=== PATIENT | male | born 1965 | race Two or more races ===

== ENCOUNTER → 2022-05-25 | Outpatient (CLI) | payer MEDICARE, MEDICAID ==
[~2022-05-25] MED LIST: BACL20TA PO; CINA30 PO; CLOP75TA33 PO; DIPH1TAB PO; FLUD0.1T PO; INSU100I19 SQ; KEPP500 PO; LACT1CAP68 PO; MIDO10TA PO; NEPVIT PO; PRAV20TA57 PO; SEVE800T8 PO; SITA50TA3 PO; TRIC54 PO
[2022-05-25 10:55] LABS: BG BASE EXCESS -1.3 mmol/L (-2.0-2.0); BG CARBOXYHEMOGLOBIN 0.9 % (0.5-1.5); BG DEOXYHEMOGLOBIN 2.5 % (0.0-5.0); BG METHEMOGLOBIN 0.1 % (0.0-1.5); BG OXYGEN SATURATION 97.5 % (92.0-98.5); BG OXYHEMOGLOBIN 96.5 % (94.0-97.0); BG PCO2 37.6 mmHg (35.0-45.0); BG PH 7.405 (7.350-7.450); BG PO2 98.3 mmHg (75.0-100.0); BG SAMPLE SITE LEFT RADIAL; BG TOTAL HEMOGLOBIN 13.2 g/dL (12.0-18.0); BG VENT MODE ROOM AIR
== END | disposition home or self-care (01) ==
LOC: PF 09:56
PROVIDERS: ATTEND Internal Medicine Pulmonary Disease
DX: J44.9 Chronic obstructive pulmonary disease, unspecified (principal); J45.909 Unspecified asthma, uncomplicated
CPT/HCPCS: 36600; 82375; 82805

== ENCOUNTER 2022-08-15 10:22 | Inpatient (IN) | payer MEDICARE, MEDICAID ==
[~2022-08-15] VITALS: Ht 167.6 cm; Wt 57.2 kg
[2022-08-15] MEDS ORDERED: LEVETIRACETAM 500MG PREMIX 100 ML IV ONE (12:15)
[2022-08-15] MEDS ORDERED: CLONIDINE 0.2MG TABLET PO ONE (13:00)
[2022-08-15 13:17] LABS: HEMATOCRIT. 32.5 % (42.0-52.0); HEMOGLOBIN. 10.7 g/dL (14.0-18.0); MEAN CORPUSCULAR HEMOGLOBIN 28.1 pg (28.0-32.0); MEAN CORPUSCULAR VOLUME 85.4 fL (80.0-94.0); MEAN PLATELET VOLUME 9.8 fl (7.4-10.4); PLATELET 96 x1000/uL (130-400); RED BLOOD CELL COUNT 3.81 mill/uL (4.7-6.1); RED CELL DISTRIBUTION WIDTH 15.5 % (11.6-14.6)
[2022-08-15 13:27] LABS: CHLORIDE 94 mEq/L (98-107)
[2022-08-15 13:44] LABS: PLATELET ESTIMATE DECREASED
[2022-08-15] MEDS: ALBUTEROL (0.083%) 2.5MG/3ML NEB HHN ONE (15:15)
[2022-08-15] MEDS ORDERED: INSULIN REGULAR (HUMULIN R) 300UNITS/3ML VIAL IV ONE (15:15)
[2022-08-15] MEDS ORDERED: CALCIUM GLUCONATE 100MG/ML 10ML VIAL IV ONE (15:15)
[2022-08-15] MEDS ORDERED: ASPIRIN 325MG EC TABLET PO ONE (15:15)
[2022-08-15] MEDS: SODIUM BICARBONATE 8.4% 1 MEQ/ML 50ML SYR IV ONE ×2 (15:34→16:20)
[2022-08-15] MEDS: SODIUM POLYSTYRENE SULFONATE 15 G/60 ML BOT PO ONE ×2 (15:34→16:20)
[2022-08-15] MEDS: DEXTROSE 50% WATER 50ML SYRINGE IV ONE ×2 (15:35→16:21)
[2022-08-15] MEDS ORDERED: MAGNESIUM/ALUMINUM HYDROXIDE/SIMETHICONE 30ML UDC PO PRN (18:30)
[2022-08-15] MEDS ORDERED: CLONIDINE 0.1MG TABLET PO PRN (18:30)
[2022-08-15] MEDS ORDERED: DOCUSATE SODIUM 100MG CAPSULE PO PRN (18:30)
[2022-08-15] MEDS ORDERED: ACETAMINOPHEN 325MG TABLET PO PRN (18:30)
[2022-08-15] MEDS ORDERED: ONDANSETRON HCL 4MG/2ML INJ IV PRN (18:30)
[2022-08-15] MEDS ORDERED: HYDROCODONE/ACETAMINOPHEN 5/325MG TABLET PO PRN (18:30)
[2022-08-15] MEDS ORDERED: GUAIFENESIN 200MG/10ML SUGAR FREE UDC PO PRN (18:30)
[2022-08-15] MEDS ORDERED: NALOXONE HCL 0.4MG/ML VIAL IV PRN (18:45)
[2022-08-15 18:49] LABS: CREATINE KINASE 53 IU/L (39-308)
[2022-08-15] MEDS: DEXTROSE 50% WATER 50ML SYRINGE IV PRN (19:54)
[2022-08-15] MEDS: INSULIN LISPRO 100 UNITS/ML SUBCUT SCH ×2 (19:55→21:00)
[2022-08-15 20:42] LABS: TOTAL IRON BINDING CAPACITY 191 ug/dL (250-450)
[2022-08-15] MEDS ORDERED: MEDICATION NOT ON FORMULARY EA (Pravastatin Sodium 1 TAB) PO SCH (21:00)
[2022-08-15] MEDS: BLOOD SUGAR DIAGNOSTIC STRIP TEST SCH (21:05)
[2022-08-15 21:21] LABS: FERRITIN 547 ng/mL (22-322); VITAMIN B12 SERUM 1423 pg/mL (211-911)
[2022-08-15] MEDS: ATORVASTATIN CALCIUM 10MG TABLET PO SCH (21:26)
[2022-08-15] MEDS: LEVETIRACETAM 500MG TABLET PO SCH (21:26)
[2022-08-15 22:00] VITALS: BP 156/52
[2022-08-15] MEDS ORDERED: BACLOFEN 20MG TABLET PO SCH (22:00)
[2022-08-16] VITALS (7 sets, daily range): BP systolic 132–159; BP diastolic 50–105
[2022-08-16] MEDS: FENOFIBRATE NANOCRYSTALLIZED 48MG TABLET PO SCH ×2 (00:01→21:37)
[2022-08-16] MEDS: BACLOFEN 10MG TABLET PO SCH ×4 (07:02→21:29)
[2022-08-16] MEDS: BLOOD SUGAR DIAGNOSTIC STRIP TEST SCH ×4 (07:11→21:42)
[2022-08-16 07:12] LABS: HEMATOCRIT. 33.9 % (42.0-52.0); HEMOGLOBIN. 11.3 g/dL (14.0-18.0); MEAN CORPUSCULAR HEMOGLOBIN 28.3 pg (28.0-32.0); MEAN CORPUSCULAR VOLUME 85.1 fL (80.0-94.0); MEAN PLATELET VOLUME 10.2 fl (7.4-10.4); PLATELET 96 x1000/uL (130-400); RED BLOOD CELL COUNT 3.99 mill/uL (4.7-6.1); RED CELL DISTRIBUTION WIDTH 15.7 % (11.6-14.6)
[2022-08-16 07:17] LABS: CHLORIDE 94 mEq/L (98-107); HDL CHOLESTEROL 96 mg/dL (40-59); LDL CHOLESTEROL 35 mg/dL (5-100)
[2022-08-16] MEDS: INSULIN LISPRO 100 UNITS/ML SUBCUT SCH ×4 (07:50→21:00)
[2022-08-16] MEDS ORDERED: ENOXAPARIN 30MG/0.3ML SYR SUBCUT SCH (09:00)
[2022-08-16] MEDS: FOLIC ACID/VITAMIN B COMP W-C TABLET PO SCH (09:26)
[2022-08-16] MEDS: LEVETIRACETAM 500MG TABLET PO SCH ×2 (09:27→21:29)
[2022-08-16] MEDS: SEVELAMER CARBONATE 800 MG TABLET PO SCH ×3 (09:27→17:50)
[2022-08-16] MEDS: CINACALCET HCL 60MG TABLET PO SCH (09:27)
[2022-08-16] MEDS: FLUDROCORTISONE ACETATE 0.1MG TABLET PO SCH ×3 (09:27→21:29)
[2022-08-16] MEDS: CLOPIDOGREL 75MG TABLET PO SCH (09:27)
[2022-08-16] MEDS: ENOXAPARIN 30MG/0.3ML SYR SUBCUT SCH (09:29)
[2022-08-16] MEDS ORDERED: LORAZEPAM 2MG/ML CPJ IV PRN ×2 (13:30→18:15)
[2022-08-16 13:53] LABS: PLATELET ESTIMATE DECREASED
[2022-08-16 14:15] LABS: CREATINE KINASE 66 IU/L (39-308)
[2022-08-16 16:02] LABS: HEPATITIS B SURFACE ANTIGEN NEGATIVE
[2022-08-16] MEDS: ATORVASTATIN CALCIUM 10MG TABLET PO SCH (21:38)
[2022-08-17] VITALS (7 sets, daily range): BP systolic 98–194; BP diastolic 54–90
[2022-08-17] MEDS: BACLOFEN 10MG TABLET PO SCH ×3 (05:45→22:00)
[2022-08-17] MEDS: BLOOD SUGAR DIAGNOSTIC STRIP TEST SCH ×4 (06:29→21:17)
[2022-08-17] MEDS: CINACALCET HCL 60MG TABLET PO SCH ×2 (07:50→09:46)
[2022-08-17] MEDS: SEVELAMER CARBONATE 800 MG TABLET PO SCH ×4 (07:50→17:50)
[2022-08-17] MEDS: CLOPIDOGREL 75MG TABLET PO SCH ×2 (09:00→09:46)
[2022-08-17] MEDS: FLUDROCORTISONE ACETATE 0.1MG TABLET PO SCH ×3 (09:00→21:00)
[2022-08-17] MEDS: ENOXAPARIN 30MG/0.3ML SYR SUBCUT SCH (09:00)
[2022-08-17] MEDS: LEVETIRACETAM 500MG TABLET PO SCH ×3 (09:00→21:00)
[2022-08-17] MEDS: FOLIC ACID/VITAMIN B COMP W-C TABLET PO SCH ×2 (09:00→09:46)
[2022-08-17] MEDS: INSULIN LISPRO 100 UNITS/ML SUBCUT SCH ×4 (09:46→21:00)
[2022-08-17] MEDS ORDERED: LORAZEPAM 2MG/ML CPJ IV PRN (10:00)
[2022-08-17 12:37] LABS: HEMATOCRIT. 31.4 % (42.0-52.0); HEMOGLOBIN. 10.3 g/dL (14.0-18.0); MEAN CORPUSCULAR VOLUME 84.8 fL (80.0-94.0); MEAN PLATELET VOLUME 10.4 fl (7.4-10.4); PLATELET 86 x1000/uL (130-400); RED CELL DISTRIBUTION WIDTH 15.9 % (11.6-14.6)
[2022-08-17 13:09] LABS: CHLORIDE 97 mEq/L (98-107)
[2022-08-17] MEDS ORDERED: FLUMAZENIL 0.1 MG/ML 5ML VIAL IV NR (13:15)
[2022-08-17] MEDS: AMLODIPINE 5MG TABLET PO SCH ×2 (13:15→21:00)
[2022-08-17] MEDS ORDERED: DILTIAZEM HCL 60MG TABLET PO SCH (14:00)
[2022-08-17 15:23] LABS: T4 FREE 1.2 ng/dL (0.76-1.46)
[2022-08-17 16:06] LABS: PLATELET ESTIMATE DECREASED
[2022-08-17] MEDS: DEXTROSE 50% WATER 50ML SYRINGE IV PRN (16:40)
[2022-08-17] MEDS: ATORVASTATIN CALCIUM 10MG TABLET PO SCH (21:00)
[2022-08-17] MEDS: FENOFIBRATE NANOCRYSTALLIZED 48MG TABLET PO SCH (21:00)
[2022-08-18 04:00] VITALS: BP 157/50
[2022-08-18] MEDS: BACLOFEN 10MG TABLET PO SCH ×3 (06:00→21:05)
[2022-08-18] MEDS: BLOOD SUGAR DIAGNOSTIC STRIP TEST SCH ×4 (06:45→20:24)
[2022-08-18 06:57] LABS: HEMATOCRIT. 35.4 % (42.0-52.0); HEMOGLOBIN. 11.6 g/dL (14.0-18.0); MEAN CORPUSCULAR HEMOGLOBIN 28.1 pg (28.0-32.0); MEAN CORPUSCULAR VOLUME 85.3 fL (80.0-94.0); MEAN PLATELET VOLUME 9.9 fl (7.4-10.4); PLATELET 86 x1000/uL (130-400); RED BLOOD CELL COUNT 4.14 mill/uL (4.7-6.1); RED CELL DISTRIBUTION WIDTH 15.7 % (11.6-14.6)
[2022-08-18 07:13] LABS: CHLORIDE 97 mEq/L (98-107)
[2022-08-18] MEDS: INSULIN LISPRO 100 UNITS/ML SUBCUT SCH ×4 (07:50→20:28)
[2022-08-18] MEDS: SEVELAMER CARBONATE 800 MG TABLET PO SCH ×3 (07:50→17:50)
[2022-08-18 08:00] VITALS: BP 146/88
[2022-08-18 08:17] LABS: PLATELET ESTIMATE DECREASED
[2022-08-18 11:36] LABS: PROTHROMBIN TIME 11.2 sec (9.6-11.0)
[2022-08-18 12:00] VITALS: BP 139/56
[2022-08-18] MEDS: LEVOTHYROXINE SODIUM 50MCG TABLET PO SCH (14:23)
[2022-08-18] MEDS: AMLODIPINE 5MG TABLET PO SCH ×2 (14:23→21:05)
[2022-08-18] MEDS: CINACALCET HCL 60MG TABLET PO SCH (14:23)
[2022-08-18] MEDS: FOLIC ACID/VITAMIN B COMP W-C TABLET PO SCH (14:23)
[2022-08-18] MEDS: FLUDROCORTISONE ACETATE 0.1MG TABLET PO SCH ×2 (14:23→21:05)
[2022-08-18] MEDS: CLOPIDOGREL 75MG TABLET PO SCH (14:23)
[2022-08-18] MEDS: LEVETIRACETAM 500MG TABLET PO SCH ×2 (14:24→21:05)
[2022-08-18 16:00] VITALS: BP 155/62
[2022-08-18 20:18] VITALS: BP 156/70
[2022-08-18] MEDS: FAMOTIDINE 20MG TABLET NG SCH (21:05)
[2022-08-18] MEDS: FENOFIBRATE NANOCRYSTALLIZED 48MG TABLET PO SCH (21:05)
[2022-08-18] MEDS: ATORVASTATIN CALCIUM 10MG TABLET PO SCH (21:06)
[2022-08-19 00:22] VITALS: BP 157/64
[2022-08-19 04:00] VITALS: BP 132/65
[2022-08-19] MEDS: BACLOFEN 10MG TABLET PO SCH ×3 (06:53→22:03)
[2022-08-19] MEDS: LEVOTHYROXINE SODIUM 50MCG TABLET PO SCH (06:53)
[2022-08-19] MEDS: BLOOD SUGAR DIAGNOSTIC STRIP TEST SCH ×4 (06:53→21:09)
[2022-08-19] MEDS: INSULIN LISPRO 100 UNITS/ML SUBCUT SCH ×4 (07:50→22:01)
[2022-08-19 08:00] VITALS: BP 105/49
[2022-08-19] MEDS: AMLODIPINE 5MG TABLET PO SCH ×2 (08:39→21:00)
[2022-08-19] MEDS: CLOPIDOGREL 75MG TABLET PO SCH (08:39)
[2022-08-19] MEDS: LEVETIRACETAM 500MG TABLET PO SCH ×2 (08:40→22:00)
[2022-08-19] MEDS: SEVELAMER CARBONATE 800 MG TABLET PO SCH ×3 (08:40→18:21)
[2022-08-19] MEDS: FOLIC ACID/VITAMIN B COMP W-C TABLET PO SCH (08:40)
[2022-08-19] MEDS: CINACALCET HCL 60MG TABLET PO SCH (08:40)
[2022-08-19] MEDS: FLUDROCORTISONE ACETATE 0.1MG TABLET PO SCH ×2 (08:40→21:59)
[2022-08-19 08:41] LABS: BASOPHILS % 0.8 % (0.0-2.0); HEMATOCRIT. 33.4 % (42.0-52.0); HEMOGLOBIN. 10.9 g/dL (14.0-18.0); MEAN CORPUSCULAR VOLUME 85.7 fL (80.0-94.0); MEAN PLATELET VOLUME 10.2 fl (7.4-10.4); MONOCYTES % 6.5 % (2.0-8.0); NEUTROPHILS % 83.7 % (40.0-76.0); PLATELET 83 x1000/uL (130-400); RED CELL DISTRIBUTION WIDTH 15.9 % (11.6-14.6)
[2022-08-19 09:05] LABS: CHLORIDE 96 mEq/L (98-107)
[2022-08-19] MEDS: ACETAMINOPHEN 325MG TABLET PO PRN ×2 (09:44→14:28)
[2022-08-19 12:00] VITALS: BP 93/48
[2022-08-19 16:00] VITALS: BP 115/50
[2022-08-19] MEDS ORDERED: PIPERACILLIN/TAZOBACTAM 3.375 G in DEXTROSE 5% WATER 50 ML IV SCH (18:00)
[2022-08-19] MEDS ORDERED: VANCOMYCIN 1.25GM PMX (XELLIA) 250 ML IV NR (18:00)
[2022-08-19 20:00] VITALS: BP 111/54
[2022-08-19 21:03] LABS: HEMATOCRIT 30.3 % (42.0-52.0); HEMOGLOBIN 9.9 g/dL (14.0-18.0); MEAN CORPUSCULAR HEMOGLOBIN 28.1 pg (28.0-32.0); MEAN CORPUSCULAR VOLUME 86.2 fL (80.0-94.0); PLATELET 68 x1000/uL (130-400); RED BLOOD CELL COUNT 3.51 mill/uL (4.7-6.1); RED CELL DISTRIBUTION WIDTH 16.2 % (11.6-14.6)
[2022-08-19] MEDS: ATORVASTATIN CALCIUM 10MG TABLET PO SCH (21:36)
[2022-08-19] MEDS: FENOFIBRATE NANOCRYSTALLIZED 48MG TABLET PO SCH (21:59)
[2022-08-19] MEDS: FAMOTIDINE 20MG TABLET NG SCH (21:59)
[2022-08-19] MEDS ORDERED: PIPERACILLIN/TAZOBACTAM 3.375GM/50ML PREMIX IV SCH (22:00)
[2022-08-20] VITALS (54 sets, daily range): BP systolic 78–147; BP diastolic 43–93
[2022-08-20] MEDS: BLOOD SUGAR DIAGNOSTIC STRIP TEST SCH ×3 (06:32→20:40)
[2022-08-20] MEDS: BACLOFEN 10MG TABLET PO SCH ×3 (06:33→21:34)
[2022-08-20] MEDS: LEVOTHYROXINE SODIUM 50MCG TABLET PO SCH (06:33)
[2022-08-20] MEDS: PIPERACILLIN/TAZOBACTAM 3.375 G in DEXTROSE 5% WATER 50 ML IV SCH ×2 (08:31→21:34)
[2022-08-20] MEDS: SEVELAMER CARBONATE 800 MG TABLET PO SCH ×3 (08:31→17:00)
[2022-08-20] MEDS: FOLIC ACID/VITAMIN B COMP W-C TABLET PO SCH (08:31)
[2022-08-20] MEDS: AMLODIPINE 5MG TABLET PO SCH ×3 (08:32→21:00)
[2022-08-20] MEDS: FLUDROCORTISONE ACETATE 0.1MG TABLET PO SCH ×3 (08:32→21:33)
[2022-08-20] MEDS: CLOPIDOGREL 75MG TABLET PO SCH (08:32)
[2022-08-20] MEDS: LEVETIRACETAM 500MG TABLET PO SCH ×3 (08:32→21:33)
[2022-08-20] MEDS: INSULIN LISPRO 100 UNITS/ML SUBCUT SCH ×4 (08:55→21:00)
[2022-08-20 11:33] LABS: HEMATOCRIT 28.5 % (42.0-52.0); HEMOGLOBIN 9.3 g/dL (14.0-18.0); MEAN CORPUSCULAR HEMOGLOBIN 28.2 pg (28.0-32.0); PLATELET 71 x1000/uL (130-400); RED BLOOD CELL COUNT 3.31 mill/uL (4.7-6.1); RED CELL DISTRIBUTION WIDTH 16.1 % (11.6-14.6)
[2022-08-20 12:22] LABS: BG BASE EXCESS -3.5 mmol/L (-2.0-2.0); BG CARBOXYHEMOGLOBIN 0.6 % (0.5-1.5); BG DEOXYHEMOGLOBIN 1.2 % (0.0-5.0); BG FRACTION INSPIRED OXYGEN 100; BG METHEMOGLOBIN 0.3 % (0.0-1.5); BG OXYGEN SATURATION 98.8 % (92.0-98.5); BG OXYHEMOGLOBIN 97.9 % (94.0-97.0); BG PCO2 35.9 mmHg (35.0-45.0); BG PH 7.385 (7.350-7.450); BG PO2 355.2 mmHg (75.0-100.0); BG SAMPLE SITE RIGHT BRACHIAL; BG TOTAL HEMOGLOBIN 11.4 g/dL (12.0-18.0); BG VENT MODE VENT - AC
[2022-08-20] MEDS: PHENYLEPHRINE 100 MG in DEXT 5% WATER 240 ML IV PRN (12:41)
[2022-08-20] MEDS ORDERED: NOREPINEPHRINE 32 MG in DEXT 5% WATER 218 ML IV PRN (13:00)
[2022-08-20] MEDS: CINACALCET HCL 60MG TABLET PO SCH (13:04)
[2022-08-20 16:05] LABS: HEMATOCRIT. 28.8 % (42.0-52.0); HEMOGLOBIN. 9.5 g/dL (14.0-18.0); MEAN CORPUSCULAR HEMOGLOBIN 28.6 pg (28.0-32.0); MEAN CORPUSCULAR VOLUME 86.2 fL (80.0-94.0); MEAN PLATELET VOLUME 10.6 fl (7.4-10.4); PLATELET 82 x1000/uL (130-400); RED BLOOD CELL COUNT 3.34 mill/uL (4.7-6.1); RED CELL DISTRIBUTION WIDTH 16.6 % (11.6-14.6)
[2022-08-20 16:30] LABS: CHLORIDE 88 mEq/L (98-107)
[2022-08-20 17:04] LABS: PLATELET ESTIMATE DECREASED
[2022-08-20] MEDS: FAMOTIDINE 20MG TABLET NG SCH ×2 (20:39→21:33)
[2022-08-20] MEDS: FENOFIBRATE NANOCRYSTALLIZED 48MG TABLET PO SCH ×2 (20:40→21:33)
[2022-08-20] MEDS: ATORVASTATIN CALCIUM 10MG TABLET PO SCH ×2 (20:40→21:33)
[2022-08-21] VITALS (98 sets, daily range): BP systolic 92–181; BP diastolic 52–114
[2022-08-21 05:11] LABS: BASOPHILS % 0.5 % (0.0-2.0); EOSINOPHILS % 0.8 % (0.0-5.0); HEMATOCRIT. 29.5 % (42.0-52.0); HEMOGLOBIN. 9.9 g/dL (14.0-18.0); LYMPHOCYTES % 11.4 % (20.0-50.0); MEAN CORPUSCULAR HEMOGLOBIN 28.5 pg (28.0-32.0); MEAN CORPUSCULAR VOLUME 84.8 fL (80.0-94.0); MEAN PLATELET VOLUME 11.1 fl (7.4-10.4); MONOCYTES % 7.2 % (2.0-8.0); NEUTROPHILS % 80.1 % (40.0-76.0); PLATELET 77 x1000/uL (130-400); RED BLOOD CELL COUNT 3.48 mill/uL (4.7-6.1); RED CELL DISTRIBUTION WIDTH 16.7 % (11.6-14.6)
[2022-08-21] MEDS: BACLOFEN 10MG TABLET PO SCH ×3 (05:21→21:23)
[2022-08-21] MEDS: BLOOD SUGAR DIAGNOSTIC STRIP TEST SCH ×4 (05:21→21:39)
[2022-08-21 05:35] LABS: CHLORIDE 89 mEq/L (98-107)
[2022-08-21 05:48] LABS: PHOSPHORUS 3.6 mg/dL (2.5-4.9)
[2022-08-21] MEDS: INSULIN LISPRO 100 UNITS/ML SUBCUT SCH ×4 (06:03→21:41)
[2022-08-21] MEDS: LEVOTHYROXINE SODIUM 50MCG TABLET PO SCH (06:17)
[2022-08-21] MEDS: CINACALCET HCL 60MG TABLET PO SCH (07:53)
[2022-08-21] MEDS: SEVELAMER CARBONATE 800 MG TABLET PO SCH ×3 (07:53→16:04)
[2022-08-21] MEDS: LEVETIRACETAM 500MG TABLET PO SCH ×2 (08:03→21:21)
[2022-08-21] MEDS: CLOPIDOGREL 75MG TABLET PO SCH (08:03)
[2022-08-21] MEDS: FOLIC ACID/VITAMIN B COMP W-C TABLET PO SCH (08:03)
[2022-08-21] MEDS: FLUDROCORTISONE ACETATE 0.1MG TABLET PO SCH ×2 (08:03→21:21)
[2022-08-21] MEDS: AMLODIPINE 5MG TABLET PO SCH ×2 (08:10→21:22)
[2022-08-21] MEDS: PIPERACILLIN/TAZOBACTAM 3.375 G in DEXTROSE 5% WATER 50 ML IV SCH ×2 (08:10→21:24)
[2022-08-21 08:46] LABS: BG BASE EXCESS -2.5 mmol/L (-2.0-2.0); BG CARBOXYHEMOGLOBIN 0.7 % (0.5-1.5); BG DEOXYHEMOGLOBIN 2.5 % (0.0-5.0); BG FRACTION INSPIRED OXYGEN 30; BG HCO3 ACT 20.9 mmol/L (22.0-26.0); BG METHEMOGLOBIN 0.3 % (0.0-1.5); BG OXYGEN SATURATION 97.5 % (92.0-98.5); BG OXYHEMOGLOBIN 96.5 % (94.0-97.0); BG PCO2 30.4 mmHg (35.0-45.0); BG PH 7.456 (7.350-7.450); BG PO2 120.2 mmHg (75.0-100.0); BG SAMPLE SITE RIGHT RADIAL; BG TOTAL HEMOGLOBIN 8.2 g/dL (12.0-18.0); BG VENT MODE VENT - AC
[2022-08-21] MEDS: PHENYLEPHRINE 100 MG in DEXT 5% WATER 240 ML IV PRN (15:36)
[2022-08-21] MEDS ORDERED: VANCOMYCIN 500MG PREMIX 100 ML IV NR (21:00)
[2022-08-21] MEDS: FAMOTIDINE 20MG TABLET NG SCH (21:21)
[2022-08-21] MEDS: FENOFIBRATE NANOCRYSTALLIZED 48MG TABLET PO SCH (21:21)
[2022-08-21] MEDS: ATORVASTATIN CALCIUM 10MG TABLET PO SCH (21:24)
[2022-08-22] VITALS (53 sets, daily range): BP systolic 59–153; BP diastolic 35–113
[2022-08-22 05:24] LABS: HEMOGLOBIN 10.4 g/dL (14.0-18.0); MEAN CORPUSCULAR HEMOGLOBIN 28.2 pg (28.0-32.0); MEAN CORPUSCULAR VOLUME 84.2 fL (80.0-94.0); PLATELET 101 x1000/uL (130-400); RED BLOOD CELL COUNT 3.68 mill/uL (4.7-6.1); RED CELL DISTRIBUTION WIDTH 16.7 % (11.6-14.6)
[2022-08-22] MEDS: BACLOFEN 10MG TABLET PO SCH ×2 (05:44→13:07)
[2022-08-22] MEDS: CINACALCET HCL 60MG TABLET PO SCH (06:11)
[2022-08-22] MEDS: BLOOD SUGAR DIAGNOSTIC STRIP TEST SCH ×4 (06:11→21:00)
[2022-08-22] MEDS: SEVELAMER CARBONATE 800 MG TABLET PO SCH ×3 (06:11→17:00)
[2022-08-22] MEDS: LEVOTHYROXINE SODIUM 50MCG TABLET PO SCH (06:11)
[2022-08-22] MEDS: INSULIN LISPRO 100 UNITS/ML SUBCUT SCH ×4 (06:38→22:18)
[2022-08-22 07:47] LABS: BG BASE EXCESS 2.7 mmol/L (-2.0-2.0); BG CARBOXYHEMOGLOBIN 0.4 % (0.5-1.5); BG DEOXYHEMOGLOBIN 2.3 % (0.0-5.0); BG FRACTION INSPIRED OXYGEN 30; BG HCO3 ACT 24.8 mmol/L (22.0-26.0); BG METHEMOGLOBIN 0.3 % (0.0-1.5); BG OXYGEN SATURATION 97.7 % (92.0-98.5); BG PCO2 29.7 mmHg (35.0-45.0); BG PH 7.539 (7.350-7.450); BG PO2 121.1 mmHg (75.0-100.0); BG SAMPLE SITE RIGHT BRACHIAL; BG TOTAL HEMOGLOBIN 10.4 g/dL (12.0-18.0); BG VENT MODE VENT - AC
[2022-08-22 08:08] LABS: HBSAG SCREEN Negative (Negative)
[2022-08-22] MEDS: PIPERACILLIN/TAZOBACTAM 3.375 G in DEXTROSE 5% WATER 50 ML IV SCH (08:52)
[2022-08-22] MEDS: FOLIC ACID/VITAMIN B COMP W-C TABLET PO SCH (08:53)
[2022-08-22] MEDS: CLOPIDOGREL 75MG TABLET PO SCH (08:53)
[2022-08-22] MEDS: LEVETIRACETAM 500MG TABLET PO SCH ×2 (08:53→22:18)
[2022-08-22] MEDS: AMLODIPINE 5MG TABLET PO SCH ×2 (08:53→22:20)
[2022-08-22] MEDS: FLUDROCORTISONE ACETATE 0.1MG TABLET PO SCH ×2 (08:53→22:19)
[2022-08-22] MEDS: CEFEPIME 2,000 MG in DEXT 5% WATER 100 ML IV SCH (14:05)
[2022-08-22] MEDS: AZITHROMYCIN 500 MG in DEXT 5% WATER 250 ML IV SCH (14:06)
[2022-08-22] MEDS: ATORVASTATIN CALCIUM 10MG TABLET PO SCH (21:00)
[2022-08-22] MEDS: FENOFIBRATE NANOCRYSTALLIZED 48MG TABLET PO SCH (22:18)
[2022-08-22] MEDS: FAMOTIDINE 20MG TABLET NG SCH (22:19)
[2022-08-23] VITALS (72 sets, daily range): BP systolic 100–169; BP diastolic 44–119
[2022-08-23 04:26] LABS: HEMOGLOBIN. 10.5 g/dL (14.0-18.0); MEAN CORPUSCULAR HEMOGLOBIN 27.7 pg (28.0-32.0); MEAN CORPUSCULAR VOLUME 84.7 fL (80.0-94.0); PLATELET 94 x1000/uL (130-400); RED BLOOD CELL COUNT 3.78 mill/uL (4.7-6.1); RED CELL DISTRIBUTION WIDTH 16.8 % (11.6-14.6)
[2022-08-23] MEDS: BLOOD SUGAR DIAGNOSTIC STRIP TEST SCH ×4 (06:18→20:56)
[2022-08-23] MEDS: SEVELAMER CARBONATE 800 MG TABLET PO SCH ×3 (06:21→17:10)
[2022-08-23] MEDS: CINACALCET HCL 60MG TABLET PO SCH (06:21)
[2022-08-23] MEDS: LEVOTHYROXINE SODIUM 50MCG TABLET PO SCH (06:21)
[2022-08-23] MEDS: INSULIN LISPRO 100 UNITS/ML SUBCUT SCH ×4 (06:22→20:56)
[2022-08-23 08:24] LABS: BG BASE EXCESS 0.1 mmol/L (-2.0-2.0); BG CARBOXYHEMOGLOBIN 0.3 % (0.5-1.5); BG FRACTION INSPIRED OXYGEN 30; BG HCO3 ACT 23.9 mmol/L (22.0-26.0); BG METHEMOGLOBIN 0.3 % (0.0-1.5); BG OXYHEMOGLOBIN 97.4 % (94.0-97.0); BG PCO2 35.8 mmHg (35.0-45.0); BG PH 7.443 (7.350-7.450); BG PO2 145.3 mmHg (75.0-100.0); BG SAMPLE SITE RIGHT RADIAL; BG TOTAL HEMOGLOBIN 10.4 g/dL (12.0-18.0); BG VENT MODE VENT - AC
[2022-08-23] MEDS: LEVETIRACETAM 500MG TABLET PO SCH ×2 (08:29→20:40)
[2022-08-23] MEDS: AMLODIPINE 5MG TABLET PO SCH ×2 (08:29→20:40)
[2022-08-23] MEDS: CLOPIDOGREL 75MG TABLET PO SCH (08:29)
[2022-08-23] MEDS: FOLIC ACID/VITAMIN B COMP W-C TABLET PO SCH (08:29)
[2022-08-23] MEDS: FLUDROCORTISONE ACETATE 0.1MG TABLET PO SCH ×2 (08:29→20:40)
[2022-08-23] MEDS: PHENYLEPHRINE 100 MG in DEXT 5% WATER 240 ML IV PRN (08:30)
[2022-08-23] MEDS: ENOXAPARIN 30MG/0.3ML SYR SUBCUT SCH (09:00)
[2022-08-23 12:08] LABS: PLATELET ESTIMATE DECREASED
[2022-08-23] MEDS: AZITHROMYCIN 500 MG in DEXT 5% WATER 250 ML IV SCH (14:01)
[2022-08-23] MEDS: CEFEPIME 2,000 MG in DEXT 5% WATER 100 ML IV SCH (14:02)
[2022-08-23] MEDS: ATORVASTATIN CALCIUM 10MG TABLET PO SCH (20:40)
[2022-08-23] MEDS: FAMOTIDINE 20MG TABLET NG SCH (20:40)
[2022-08-23] MEDS: FENOFIBRATE NANOCRYSTALLIZED 48MG TABLET PO SCH (20:40)
[2022-08-24] VITALS (52 sets, daily range): BP systolic 96–167; BP diastolic 42–104
[2022-08-24 05:54] LABS: HEMATOCRIT 31.4 % (42.0-52.0); HEMOGLOBIN 10.5 g/dL (14.0-18.0); MEAN CORPUSCULAR HEMOGLOBIN 28.2 pg (28.0-32.0); PLATELET 90 x1000/uL (130-400); RED BLOOD CELL COUNT 3.74 mill/uL (4.7-6.1); RED CELL DISTRIBUTION WIDTH 16.4 % (11.6-14.6)
[2022-08-24] MEDS: LEVOTHYROXINE SODIUM 50MCG TABLET PO SCH (06:23)
[2022-08-24] MEDS: BLOOD SUGAR DIAGNOSTIC STRIP TEST SCH ×4 (06:30→21:58)
[2022-08-24] MEDS: INSULIN LISPRO 100 UNITS/ML SUBCUT SCH ×4 (06:38→21:00)
[2022-08-24] MEDS: SEVELAMER CARBONATE 800 MG TABLET PO SCH ×3 (06:46→18:30)
[2022-08-24] MEDS: CINACALCET HCL 60MG TABLET PO SCH (06:47)
[2022-08-24] MEDS: FLUDROCORTISONE ACETATE 0.1MG TABLET PO SCH ×2 (09:00→23:10)
[2022-08-24 09:02] LABS: BG BASE EXCESS 0.5 mmol/L (-2.0-2.0); BG CARBOXYHEMOGLOBIN 0.5 % (0.5-1.5); BG DEOXYHEMOGLOBIN 2.4 % (0.0-5.0); BG FRACTION INSPIRED OXYGEN 30; BG HCO3 ACT 23.3 mmol/L (22.0-26.0); BG METHEMOGLOBIN 0.3 % (0.0-1.5); BG OXYGEN SATURATION 97.6 % (92.0-98.5); BG OXYHEMOGLOBIN 96.8 % (94.0-97.0); BG PH 7.494 (7.350-7.450); BG PO2 117.6 mmHg (75.0-100.0); BG SAMPLE SITE LEFT RADIAL; BG TOTAL HEMOGLOBIN 10.4 g/dL (12.0-18.0); BG TOTAL RESPIRATORY RATE 15 b/min; BG VENT MODE VENT - AC
[2022-08-24] MEDS: LEVETIRACETAM 500MG TABLET PO SCH ×2 (09:53→21:59)
[2022-08-24] MEDS: AMLODIPINE 5MG TABLET PO SCH ×2 (09:54→21:42)
[2022-08-24] MEDS: CLOPIDOGREL 75MG TABLET PO SCH (09:55)
[2022-08-24] MEDS: FOLIC ACID/VITAMIN B COMP W-C TABLET PO SCH (09:55)
[2022-08-24] MEDS ORDERED: VANCOMYCIN 500MG PREMIX 100 ML IV NR (12:00)
[2022-08-24] MEDS: CEFEPIME 2,000 MG in DEXT 5% WATER 100 ML IV SCH (14:00)
[2022-08-24] MEDS: AZITHROMYCIN 500 MG in DEXT 5% WATER 250 ML IV SCH (14:00)
[2022-08-24] MEDS ORDERED: ALTEPLASE 2MG/VIAL ITC NR (18:00)
[2022-08-24] MEDS: ATORVASTATIN CALCIUM 10MG TABLET PO SCH (21:42)
[2022-08-24] MEDS: FAMOTIDINE 20MG TABLET NG SCH (21:43)
[2022-08-24] MEDS: FENOFIBRATE NANOCRYSTALLIZED 48MG TABLET PO SCH (21:59)
[2022-08-25] VITALS (67 sets, daily range): BP systolic 91–178; BP diastolic 54–105
[2022-08-25 05:28] LABS: HEMATOCRIT. 30.4 % (42.0-52.0); HEMOGLOBIN. 10.1 g/dL (14.0-18.0); MEAN CORPUSCULAR VOLUME 84.2 fL (80.0-94.0); MEAN PLATELET VOLUME 10.2 fl (7.4-10.4); PLATELET 90 x1000/uL (130-400); RED BLOOD CELL COUNT 3.61 mill/uL (4.7-6.1); RED CELL DISTRIBUTION WIDTH 16.3 % (11.6-14.6)
[2022-08-25] MEDS: SEVELAMER CARBONATE 800 MG TABLET PO SCH ×3 (06:21→17:00)
[2022-08-25] MEDS: LEVOTHYROXINE SODIUM 50MCG TABLET PO SCH (06:21)
[2022-08-25] MEDS: CINACALCET HCL 60MG TABLET PO SCH (06:21)
[2022-08-25] MEDS: BLOOD SUGAR DIAGNOSTIC STRIP TEST SCH ×3 (06:22→17:00)
[2022-08-25] MEDS: INSULIN LISPRO 100 UNITS/ML SUBCUT SCH ×3 (06:54→17:00)
[2022-08-25 08:20] LABS: BG BASE EXCESS -0.4 mmol/L (-2.0-2.0); BG CARBOXYHEMOGLOBIN 0.3 % (0.5-1.5); BG DEOXYHEMOGLOBIN 2.1 % (0.0-5.0); BG FRACTION INSPIRED OXYGEN 30; BG HCO3 ACT 23.3 mmol/L (22.0-26.0); BG METHEMOGLOBIN 0.2 % (0.0-1.5); BG OXYGEN SATURATION 97.9 % (92.0-98.5); BG OXYHEMOGLOBIN 97.4 % (94.0-97.0); BG PCO2 34.8 mmHg (35.0-45.0); BG PH 7.444 (7.350-7.450); BG PO2 132.2 mmHg (75.0-100.0); BG SAMPLE SITE RIGHT BRACHIAL; BG TOTAL HEMOGLOBIN 10.1 g/dL (12.0-18.0); BG VENT MODE VENT - AC
[2022-08-25] MEDS: IPRATROPIUM/ALBUTEROL 0.5-3(2.5)MG/3ML NEB HHN PRN (08:29)
[2022-08-25] MEDS: FLUDROCORTISONE ACETATE 0.1MG TABLET PO SCH ×2 (09:00→21:34)
[2022-08-25] MEDS: FOLIC ACID/VITAMIN B COMP W-C TABLET PO SCH (09:00)
[2022-08-25] MEDS: AMLODIPINE 5MG TABLET PO SCH ×2 (09:00→21:35)
[2022-08-25 09:55] LABS: PLATELET ESTIMATE DECREASED
[2022-08-25] MEDS: LEVETIRACETAM 500MG TABLET PO SCH ×2 (10:01→21:34)
[2022-08-25] MEDS: CEFEPIME 2,000 MG in DEXT 5% WATER 100 ML IV SCH (13:16)
[2022-08-25] MEDS: AZITHROMYCIN 500 MG in DEXT 5% WATER 250 ML IV SCH (13:16)
[2022-08-25] MEDS: FAMOTIDINE 20MG TABLET NG SCH (21:34)
[2022-08-25] MEDS: ATORVASTATIN CALCIUM 10MG TABLET PO SCH (21:35)
[2022-08-25] MEDS: FENOFIBRATE NANOCRYSTALLIZED 48MG TABLET PO SCH (21:35)
[2022-08-26] VITALS (50 sets, daily range): BP systolic 90–153; BP diastolic 40–98
[2022-08-26] MEDS: BLOOD SUGAR DIAGNOSTIC STRIP TEST SCH ×4 (00:49→17:41)
[2022-08-26] MEDS: INSULIN LISPRO 100 UNITS/ML SUBCUT SCH ×4 (00:49→17:44)
[2022-08-26 05:38] LABS: HEMATOCRIT. 30.4 % (42.0-52.0); HEMOGLOBIN. 10.2 g/dL (14.0-18.0); MEAN CORPUSCULAR HEMOGLOBIN 28.8 pg (28.0-32.0); MEAN CORPUSCULAR VOLUME 85.7 fL (80.0-94.0); MEAN PLATELET VOLUME 9.9 fl (7.4-10.4); PLATELET 97 x1000/uL (130-400); RED BLOOD CELL COUNT 3.55 mill/uL (4.7-6.1); RED CELL DISTRIBUTION WIDTH 16.2 % (11.6-14.6)
[2022-08-26] MEDS: FLUDROCORTISONE ACETATE 0.1MG TABLET PO SCH ×2 (08:49→21:55)
[2022-08-26] MEDS: LEVOTHYROXINE SODIUM 50MCG TABLET PO SCH (08:50)
[2022-08-26] MEDS: AMLODIPINE 5MG TABLET PO SCH ×2 (08:50→21:55)
[2022-08-26] MEDS: SEVELAMER CARBONATE 800 MG TABLET PO SCH ×3 (08:50→16:39)
[2022-08-26] MEDS: CINACALCET HCL 60MG TABLET PO SCH (08:50)
[2022-08-26] MEDS: FOLIC ACID/VITAMIN B COMP W-C TABLET PO SCH (08:50)
[2022-08-26] MEDS: LEVETIRACETAM 500MG TABLET PO SCH ×2 (08:50→21:54)
[2022-08-26 10:04] LABS: PLATELET ESTIMATE DECREASED
[2022-08-26] MEDS ORDERED: CEFEPIME 1,000 MG in DEXTROSE 5% WATER 50 ML IV SCH (14:00)
[2022-08-26] MEDS: AZITHROMYCIN 500 MG in DEXT 5% WATER 250 ML IV SCH (14:07)
[2022-08-26 14:29] LABS: HEPATITIS B SURFACE ANTIGEN NEGATIVE
[2022-08-26] MEDS ORDERED: POTASSIUM BICARB/CIT ACID 25 MEQ TABLET.EFF NG NR (15:30)
[2022-08-26] MEDS ORDERED: POTASSIUM BICARB/CIT ACID 25 MEQ TABLET.EFF PO NR (15:30)
[2022-08-26] MEDS ORDERED: VANCOMYCIN 500MG PREMIX 100 ML IV NR (17:00)
[2022-08-26] MEDS: FENOFIBRATE NANOCRYSTALLIZED 48MG TABLET PO SCH (21:55)
[2022-08-26] MEDS: ATORVASTATIN CALCIUM 10MG TABLET PO SCH (21:55)
[2022-08-26] MEDS: FAMOTIDINE 20MG TABLET NG SCH (21:56)
[2022-08-27] VITALS (92 sets, daily range): BP systolic 60–123; BP diastolic 41–87
[2022-08-27 04:12] LABS: HEMATOCRIT. 29.2 % (42.0-52.0); HEMOGLOBIN. 9.8 g/dL (14.0-18.0); MEAN CORPUSCULAR HEMOGLOBIN 28.9 pg (28.0-32.0); MEAN CORPUSCULAR VOLUME 85.9 fL (80.0-94.0); MEAN PLATELET VOLUME 10.4 fl (7.4-10.4); PLATELET 112 x1000/uL (130-400)
[2022-08-27] MEDS: BLOOD SUGAR DIAGNOSTIC STRIP TEST SCH ×4 (06:00→17:32)
[2022-08-27] MEDS: LEVOTHYROXINE SODIUM 50MCG TABLET PO SCH (07:34)
[2022-08-27] MEDS: CINACALCET HCL 60MG TABLET PO SCH (07:34)
[2022-08-27] MEDS: SEVELAMER CARBONATE 800 MG TABLET PO SCH ×3 (07:34→17:32)
[2022-08-27] MEDS: INSULIN LISPRO 100 UNITS/ML SUBCUT SCH ×4 (07:35→17:32)
[2022-08-27] MEDS: FOLIC ACID/VITAMIN B COMP W-C TABLET PO SCH (08:31)
[2022-08-27] MEDS: FLUDROCORTISONE ACETATE 0.1MG TABLET PO SCH ×2 (08:32→21:31)
[2022-08-27] MEDS: LEVETIRACETAM 500MG TABLET PO SCH ×2 (08:32→21:31)
[2022-08-27] MEDS: AMLODIPINE 5MG TABLET PO SCH ×2 (08:32→21:32)
[2022-08-27 09:42] LABS: PLATELET ESTIMATE SLIGHTLY DECREASED
[2022-08-27] MEDS: CEFAZOLIN 1000MG PREMIX 50 ML IV SCH (14:01)
[2022-08-27] MEDS: FAMOTIDINE 20MG TABLET NG SCH (21:31)
[2022-08-27] MEDS: FENOFIBRATE NANOCRYSTALLIZED 48MG TABLET PO SCH (21:31)
[2022-08-27] MEDS: ATORVASTATIN CALCIUM 10MG TABLET PO SCH (21:31)
[2022-08-28] VITALS (103 sets, daily range): BP systolic 66–168; BP diastolic 41–91
[2022-08-28 04:47] LABS: HEMATOCRIT 28.6 % (42.0-52.0); HEMOGLOBIN 9.5 g/dL (14.0-18.0); MEAN CORPUSCULAR HEMOGLOBIN 28.6 pg (28.0-32.0); MEAN CORPUSCULAR VOLUME 86.2 fL (80.0-94.0); PLATELET 125 x1000/uL (130-400); RED BLOOD CELL COUNT 3.32 mill/uL (4.7-6.1); RED CELL DISTRIBUTION WIDTH 16.3 % (11.6-14.6)
[2022-08-28] MEDS: INSULIN LISPRO 100 UNITS/ML SUBCUT SCH ×5 (06:00→23:41)
[2022-08-28] MEDS: BLOOD SUGAR DIAGNOSTIC STRIP TEST SCH ×5 (06:27→23:21)
[2022-08-28] MEDS: LEVOTHYROXINE SODIUM 50MCG TABLET PO SCH (06:28)
[2022-08-28] MEDS: SEVELAMER CARBONATE 800 MG TABLET PO SCH ×3 (06:29→17:29)
[2022-08-28] MEDS: CINACALCET HCL 60MG TABLET PO SCH (06:29)
[2022-08-28] MEDS: FOLIC ACID/VITAMIN B COMP W-C TABLET PO SCH (08:08)
[2022-08-28] MEDS: FLUDROCORTISONE ACETATE 0.1MG TABLET PO SCH ×2 (08:08→20:21)
[2022-08-28] MEDS: LEVETIRACETAM 500MG TABLET PO SCH ×2 (08:08→20:20)
[2022-08-28] MEDS: AMLODIPINE 5MG TABLET PO SCH ×2 (08:09→20:21)
[2022-08-28] MEDS: CEFAZOLIN 1000MG PREMIX 50 ML IV SCH (17:29)
[2022-08-28] MEDS: ATORVASTATIN CALCIUM 10MG TABLET PO SCH (20:20)
[2022-08-28] MEDS: FAMOTIDINE 20MG TABLET NG SCH (20:20)
[2022-08-28] MEDS: FENOFIBRATE NANOCRYSTALLIZED 48MG TABLET PO SCH (20:21)
[2022-08-28 20:40] LABS: INR 1.1
[2022-08-29] VITALS (102 sets, daily range): BP systolic 76–227; BP diastolic 33–151
[2022-08-29 05:17] LABS: HEMATOCRIT 29.8 % (42.0-52.0); HEMOGLOBIN 9.8 g/dL (14.0-18.0); MEAN CORPUSCULAR HEMOGLOBIN 28.3 pg (28.0-32.0); MEAN CORPUSCULAR VOLUME 86.2 fL (80.0-94.0); PLATELET 134 x1000/uL (130-400); RED BLOOD CELL COUNT 3.45 mill/uL (4.7-6.1); RED CELL DISTRIBUTION WIDTH 15.9 % (11.6-14.6)
[2022-08-29] MEDS: BLOOD SUGAR DIAGNOSTIC STRIP TEST SCH ×3 (05:25→18:37)
[2022-08-29] MEDS: INSULIN LISPRO 100 UNITS/ML SUBCUT SCH ×3 (05:25→18:41)
[2022-08-29] MEDS: LEVOTHYROXINE SODIUM 50MCG TABLET PO SCH (05:26)
[2022-08-29] MEDS: SEVELAMER CARBONATE 800 MG TABLET PO SCH ×3 (06:38→18:37)
[2022-08-29] MEDS: CINACALCET HCL 60MG TABLET PO SCH (06:38)
[2022-08-29] MEDS: AMLODIPINE 5MG TABLET PO SCH ×2 (08:45→21:00)
[2022-08-29] MEDS: FLUDROCORTISONE ACETATE 0.1MG TABLET PO SCH ×2 (08:45→21:28)
[2022-08-29] MEDS: LEVETIRACETAM 250MG TABLET PO SCH ×2 (08:45→21:27)
[2022-08-29] MEDS: FOLIC ACID/VITAMIN B COMP W-C TABLET PO SCH (08:45)
[2022-08-29] MEDS ORDERED: KCL 20MEQ/100ML PREMIX 100 ML IV NR (11:00)
[2022-08-29] MEDS: CEFAZOLIN 1000MG PREMIX 50 ML IV SCH (14:07)
[2022-08-29 14:39] LABS: HEPATITIS B SURFACE ANTIGEN NEGATIVE
[2022-08-29] MEDS: FAMOTIDINE 20MG TABLET NG SCH (21:27)
[2022-08-29] MEDS: ATORVASTATIN CALCIUM 10MG TABLET PO SCH (21:27)
[2022-08-29] MEDS: FENOFIBRATE NANOCRYSTALLIZED 48MG TABLET PO SCH (21:28)
[2022-08-30] VITALS (92 sets, daily range): BP systolic 75–177; BP diastolic 38–105
[2022-08-30] MEDS: BLOOD SUGAR DIAGNOSTIC STRIP TEST SCH ×4 (02:46→17:47)
[2022-08-30] MEDS: INSULIN LISPRO 100 UNITS/ML SUBCUT SCH ×4 (02:46→17:47)
[2022-08-30 06:00] LABS: HEMOGLOBIN. 9.7 g/dL (14.0-18.0); MEAN CORPUSCULAR HEMOGLOBIN 28.9 pg (28.0-32.0); MEAN CORPUSCULAR VOLUME 86.6 fL (80.0-94.0); MEAN PLATELET VOLUME 10.2 fl (7.4-10.4); PLATELET 142 x1000/uL (130-400); RED BLOOD CELL COUNT 3.35 mill/uL (4.7-6.1); RED CELL DISTRIBUTION WIDTH 16.3 % (11.6-14.6)
[2022-08-30] MEDS: LEVOTHYROXINE SODIUM 50MCG TABLET PO SCH ×2 (06:30→08:45)
[2022-08-30] MEDS: SEVELAMER CARBONATE 800 MG TABLET PO SCH ×3 (07:00→17:47)
[2022-08-30] MEDS: CINACALCET HCL 60MG TABLET PO SCH (07:00)
[2022-08-30] MEDS: LEVETIRACETAM 250MG TABLET PO SCH ×2 (08:45→21:10)
[2022-08-30] MEDS: FOLIC ACID/VITAMIN B COMP W-C TABLET PO SCH (08:45)
[2022-08-30] MEDS: FLUDROCORTISONE ACETATE 0.1MG TABLET PO SCH ×2 (09:00→21:11)
[2022-08-30] MEDS: MIDODRINE HCL 5MG TABLET PO SCH ×3 (09:15→17:47)
[2022-08-30 09:21] LABS: PLATELET ESTIMATE NORMAL
[2022-08-30] MEDS ORDERED: KCL 20MEQ/100ML PREMIX 100 ML IV NR (10:00)
[2022-08-30] MEDS: CEFAZOLIN 1000MG PREMIX 50 ML IV SCH (14:00)
[2022-08-30] MEDS ORDERED: SUCCINYLCHOLINE CHLORIDE 200MG/10ML IV ONE (14:20)
[2022-08-30] MEDS ORDERED: PHENYLEPHRINE HCL 10 MG/ML 1ML (IV VIAL) IV ONE (14:21)
[2022-08-30] MEDS ORDERED: PROPOFOL 200MG/20ML VIAL IV ONE (14:21)
[2022-08-30] MEDS ORDERED: FENTANYL CITRATE/PF 50MCG/ML 2ML VIAL ONE (14:22)
[2022-08-30] MEDS ORDERED: ROCURONIUM BROMIDE 10MG/ML VIAL 5ML IV ONE (14:59)
[2022-08-30] MEDS: FENOFIBRATE NANOCRYSTALLIZED 48MG TABLET PO SCH (21:00)
[2022-08-30] MEDS: ATORVASTATIN CALCIUM 10MG TABLET PO SCH (21:10)
[2022-08-30] MEDS: FAMOTIDINE 20MG TABLET NG SCH (21:11)
[2022-08-31] VITALS (92 sets, daily range): BP systolic 68–198; BP diastolic 34–92
[2022-08-31] MEDS: INSULIN LISPRO 100 UNITS/ML SUBCUT SCH ×4 (00:36→18:01)
[2022-08-31] MEDS: BLOOD SUGAR DIAGNOSTIC STRIP TEST SCH ×4 (00:38→18:00)
[2022-08-31 05:18] LABS: HEMATOCRIT. 28.1 % (42.0-52.0); HEMOGLOBIN. 9.3 g/dL (14.0-18.0); MEAN CORPUSCULAR HEMOGLOBIN 28.7 pg (28.0-32.0); MEAN PLATELET VOLUME 10.7 fl (7.4-10.4); PLATELET 160 x1000/uL (130-400); RED BLOOD CELL COUNT 3.23 mill/uL (4.7-6.1); RED CELL DISTRIBUTION WIDTH 16.7 % (11.6-14.6)
[2022-08-31 05:21] LABS: PHOSPHORUS 6.3 mg/dL (2.5-4.9)
[2022-08-31] MEDS: SEVELAMER CARBONATE 800 MG TABLET PO SCH ×3 (06:32→17:59)
[2022-08-31] MEDS: LEVOTHYROXINE SODIUM 50MCG TABLET PO SCH (06:32)
[2022-08-31] MEDS: CINACALCET HCL 60MG TABLET PO SCH (06:33)
[2022-08-31 08:09] LABS: PLATELET ESTIMATE NORMAL
[2022-08-31] MEDS: LEVETIRACETAM 250MG TABLET PO SCH ×2 (08:29→21:04)
[2022-08-31] MEDS: MIDODRINE HCL 5MG TABLET PO SCH ×3 (08:30→18:00)
[2022-08-31] MEDS: FOLIC ACID/VITAMIN B COMP W-C TABLET PO SCH (08:30)
[2022-08-31] MEDS: FLUDROCORTISONE ACETATE 0.1MG TABLET PO SCH ×2 (08:30→21:05)
[2022-08-31] MEDS: PHENYLEPHRINE 100 MG in DEXT 5% WATER 240 ML IV PRN (11:08)
[2022-08-31] MEDS: ENOXAPARIN 60MG/0.6ML SYR SUBCUT SCH (13:00)
[2022-08-31] MEDS: CEFAZOLIN 1000MG PREMIX 50 ML IV SCH (16:13)
[2022-08-31] MEDS: FENOFIBRATE NANOCRYSTALLIZED 48MG TABLET PO SCH (21:03)
[2022-08-31] MEDS: ATORVASTATIN CALCIUM 10MG TABLET PO SCH (21:04)
[2022-08-31] MEDS: FAMOTIDINE 20MG TABLET NG SCH (21:04)
[2022-09-01] VITALS (69 sets, daily range): BP systolic 65–157; BP diastolic 29–97
[2022-09-01] MEDS: BLOOD SUGAR DIAGNOSTIC STRIP TEST SCH ×5 (00:01→23:58)
[2022-09-01 04:35] LABS: HEMATOCRIT. 28.5 % (42.0-52.0); HEMOGLOBIN. 9.6 g/dL (14.0-18.0); MEAN CORPUSCULAR HEMOGLOBIN 29.1 pg (28.0-32.0); MEAN CORPUSCULAR VOLUME 86.6 fL (80.0-94.0); MEAN PLATELET VOLUME 10.9 fl (7.4-10.4); PLATELET 177 x1000/uL (130-400); RED BLOOD CELL COUNT 3.29 mill/uL (4.7-6.1); RED CELL DISTRIBUTION WIDTH 16.5 % (11.6-14.6)
[2022-09-01] MEDS: INSULIN LISPRO 100 UNITS/ML SUBCUT SCH ×5 (06:00→23:58)
[2022-09-01] MEDS: LEVOTHYROXINE SODIUM 50MCG TABLET PO SCH (06:55)
[2022-09-01] MEDS: CINACALCET HCL 60MG TABLET PO SCH (06:55)
[2022-09-01] MEDS: SEVELAMER CARBONATE 800 MG TABLET PO SCH ×3 (06:55→17:03)
[2022-09-01 07:35] LABS: PLATELET ESTIMATE NORMAL
[2022-09-01] MEDS: LEVETIRACETAM 250MG TABLET PO SCH ×2 (08:36→20:28)
[2022-09-01] MEDS: FLUDROCORTISONE ACETATE 0.1MG TABLET PO SCH ×2 (08:36→20:28)
[2022-09-01] MEDS: MIDODRINE HCL 5MG TABLET PO SCH ×3 (08:36→16:44)
[2022-09-01] MEDS: FOLIC ACID/VITAMIN B COMP W-C TABLET PO SCH (08:36)
[2022-09-01] MEDS ORDERED: POTASSIUM CHLORIDE INJ 40 MEQ in DEXT 5% WATER 250 ML IV ONE (09:15)
[2022-09-01 09:35] LABS: BG BASE EXCESS 0.4 mmol/L (-2.0-2.0); BG CARBOXYHEMOGLOBIN 0.6 % (0.5-1.5); BG DEOXYHEMOGLOBIN 2.6 % (0.0-5.0); BG FRACTION INSPIRED OXYGEN 30; BG HCO3 ACT 24.3 mmol/L (22.0-26.0); BG METHEMOGLOBIN 0.3 % (0.0-1.5); BG OXYGEN SATURATION 97.4 % (92.0-98.5); BG OXYHEMOGLOBIN 96.5 % (94.0-97.0); BG PCO2 36.5 mmHg (35.0-45.0); BG PH 7.442 (7.350-7.450); BG PO2 103.5 mmHg (75.0-100.0); BG SAMPLE SITE RIGHT BRACHIAL; BG TOTAL HEMOGLOBIN 10.4 g/dL (12.0-18.0); BG VENT MODE VENT - AC
[2022-09-01] MEDS: KCL 20MEQ/100ML X 2 FOR TOTAL KCL 40MEQ/200ML IV SCH ×2 (10:51→12:35)
[2022-09-01] MEDS: ENOXAPARIN 60MG/0.6ML SYR SUBCUT SCH (12:36)
[2022-09-01] MEDS: CEFAZOLIN 1000MG PREMIX 50 ML IV SCH (14:06)
[2022-09-01] MEDS: FAMOTIDINE 20MG TABLET NG SCH (20:27)
[2022-09-01] MEDS: ATORVASTATIN CALCIUM 10MG TABLET PO SCH (20:28)
[2022-09-01] MEDS: FENOFIBRATE NANOCRYSTALLIZED 48MG TABLET PO SCH (20:28)
[2022-09-01 22:10] LABS: HEPATITIS B SURFACE ANTIGEN NEGATIVE
[2022-09-02] VITALS (25 sets, daily range): BP systolic 75–147; BP diastolic 43–100
[2022-09-02] MEDS: INSULIN LISPRO 100 UNITS/ML SUBCUT SCH ×4 (05:12→23:12)
[2022-09-02] MEDS: BLOOD SUGAR DIAGNOSTIC STRIP TEST SCH ×4 (05:12→23:05)
[2022-09-02] MEDS: LEVOTHYROXINE SODIUM 50MCG TABLET PO SCH (05:13)
[2022-09-02 06:54] LABS: HEMATOCRIT. 28.4 % (42.0-52.0); HEMOGLOBIN. 9.2 g/dL (14.0-18.0); MEAN CORPUSCULAR HEMOGLOBIN 28.7 pg (28.0-32.0); MEAN CORPUSCULAR VOLUME 88.4 fL (80.0-94.0); MEAN PLATELET VOLUME 11.6 fl (7.4-10.4); PLATELET 191 x1000/uL (130-400); RED BLOOD CELL COUNT 3.21 mill/uL (4.7-6.1); RED CELL DISTRIBUTION WIDTH 16.8 % (11.6-14.6)
[2022-09-02] MEDS: CINACALCET HCL 60MG TABLET PO SCH (08:25)
[2022-09-02] MEDS: LEVETIRACETAM 250MG TABLET PO SCH ×2 (08:25→20:27)
[2022-09-02] MEDS: SEVELAMER CARBONATE 800 MG TABLET PO SCH ×3 (08:25→17:53)
[2022-09-02] MEDS: MIDODRINE HCL 5MG TABLET PO SCH ×3 (08:25→17:00)
[2022-09-02] MEDS: FLUDROCORTISONE ACETATE 0.1MG TABLET PO SCH ×2 (08:25→20:21)
[2022-09-02] MEDS: FOLIC ACID/VITAMIN B COMP W-C TABLET PO SCH (08:25)
[2022-09-02 11:09] LABS: PLATELET ESTIMATE NORMAL
[2022-09-02] MEDS: ENOXAPARIN 60MG/0.6ML SYR SUBCUT SCH (12:25)
[2022-09-02] MEDS: CEFAZOLIN 1000MG PREMIX 50 ML IV SCH (14:17)
[2022-09-02] MEDS: FAMOTIDINE 20MG TABLET NG SCH (20:21)
[2022-09-02] MEDS: FENOFIBRATE NANOCRYSTALLIZED 48MG TABLET PO SCH (20:21)
[2022-09-02] MEDS: ATORVASTATIN CALCIUM 10MG TABLET PO SCH (20:21)
[2022-09-03] VITALS (11 sets, daily range): BP systolic 87–144; BP diastolic 41–71
[2022-09-03 05:10] LABS: CHLORIDE 104 mEq/L (98-107)
[2022-09-03] MEDS: INSULIN LISPRO 100 UNITS/ML SUBCUT SCH ×4 (05:28→23:52)
[2022-09-03] MEDS: BLOOD SUGAR DIAGNOSTIC STRIP TEST SCH ×4 (05:28→23:52)
[2022-09-03 05:37] LABS: INR 1.2; PROTHROMBIN TIME 12.3 sec (9.6-11.0)
[2022-09-03 06:25] LABS: HEMATOCRIT. 28.3 % (42.0-52.0); HEMOGLOBIN. 9.2 g/dL (14.0-18.0); MEAN CORPUSCULAR HEMOGLOBIN 28.6 pg (28.0-32.0); MEAN CORPUSCULAR VOLUME 87.6 fL (80.0-94.0); PLATELET 199 x1000/uL (130-400); RED BLOOD CELL COUNT 3.23 mill/uL (4.7-6.1)
[2022-09-03] MEDS: LEVOTHYROXINE SODIUM 50MCG TABLET PO SCH (07:30)
[2022-09-03] MEDS: CINACALCET HCL 60MG TABLET PO SCH (08:00)
[2022-09-03] MEDS: SEVELAMER CARBONATE 800 MG TABLET PO SCH ×3 (08:00→17:15)
[2022-09-03 08:55] LABS: PLATELET ESTIMATE NORMAL
[2022-09-03] MEDS: LEVETIRACETAM 250MG TABLET PO SCH ×2 (09:00→20:41)
[2022-09-03] MEDS: FOLIC ACID/VITAMIN B COMP W-C TABLET PO SCH (09:00)
[2022-09-03] MEDS: FLUDROCORTISONE ACETATE 0.1MG TABLET PO SCH ×2 (09:00→20:41)
[2022-09-03] MEDS: MIDODRINE HCL 5MG TABLET PO SCH ×3 (09:00→17:15)
[2022-09-03] MEDS ORDERED: ENOXAPARIN 60MG/0.6ML SYR SUBCUT SCH (13:00)
[2022-09-03] MEDS ORDERED: LIDOCAINE HCL 1% 10 MG/ML 10ML VIAL ONE (13:00)
[2022-09-03] MEDS: CEFAZOLIN 1000MG PREMIX 50 ML IV SCH (14:08)
[2022-09-03] MEDS ORDERED: ETOMIDATE 2MG/ML 10ML VIAL IV ONE (14:25)
[2022-09-03] MEDS ORDERED: MIDAZOLAM HCL 5 MG/5 ML VIAL ONE (14:25)
[2022-09-03] MEDS ORDERED: ROCURONIUM BROMIDE 10MG/ML VIAL 5ML IV ONE (14:26)
[2022-09-03] MEDS: DEXT 5%/0.45% NACL 1000ML 1,000 ML IV SCH (15:33)
[2022-09-03] MEDS ORDERED: KCL 10MEQ/50ML PREMIX 50 ML IV NR (20:00)
[2022-09-03] MEDS: FENOFIBRATE NANOCRYSTALLIZED 48MG TABLET PO SCH (20:41)
[2022-09-03] MEDS: FAMOTIDINE 20MG TABLET NG SCH (20:41)
[2022-09-03] MEDS: ATORVASTATIN CALCIUM 10MG TABLET PO SCH (20:42)
[2022-09-03] MEDS: DEXTROSE 50% WATER 50ML SYRINGE IV PRN (23:52)
[2022-09-04] VITALS (12 sets, daily range): BP systolic 102–141; BP diastolic 45–89
[2022-09-04] MEDS: INSULIN LISPRO 100 UNITS/ML SUBCUT SCH ×3 (05:31→18:48)
[2022-09-04] MEDS: BLOOD SUGAR DIAGNOSTIC STRIP TEST SCH ×4 (05:32→23:56)
[2022-09-04 07:11] LABS: HEMATOCRIT. 27.5 % (42.0-52.0); HEMOGLOBIN. 9.1 g/dL (14.0-18.0); MEAN CORPUSCULAR HEMOGLOBIN 28.6 pg (28.0-32.0); MEAN CORPUSCULAR VOLUME 86.7 fL (80.0-94.0); MEAN PLATELET VOLUME 10.6 fl (7.4-10.4); PLATELET 223 x1000/uL (130-400); RED BLOOD CELL COUNT 3.17 mill/uL (4.7-6.1); RED CELL DISTRIBUTION WIDTH 16.6 % (11.6-14.6)
[2022-09-04] MEDS: LEVOTHYROXINE SODIUM 50MCG TABLET PO SCH (09:01)
[2022-09-04] MEDS: FLUDROCORTISONE ACETATE 0.1MG TABLET PO SCH ×2 (09:01→22:24)
[2022-09-04] MEDS: MIDODRINE HCL 5MG TABLET PO SCH ×3 (09:01→18:19)
[2022-09-04] MEDS: SEVELAMER CARBONATE 800 MG TABLET PO SCH ×3 (09:01→18:19)
[2022-09-04] MEDS: FOLIC ACID/VITAMIN B COMP W-C TABLET PO SCH (09:01)
[2022-09-04] MEDS: CINACALCET HCL 60MG TABLET PO SCH (09:02)
[2022-09-04] MEDS: LEVETIRACETAM 250MG TABLET PO SCH ×2 (09:10→22:29)
[2022-09-04 10:18] LABS: PLATELET ESTIMATE NORMAL
[2022-09-04] MEDS: CEFAZOLIN 1000MG PREMIX 50 ML IV SCH (14:56)
[2022-09-04 17:36] LABS: HEPATITIS B SURFACE ANTIGEN NEGATIVE
[2022-09-04] MEDS: FENOFIBRATE NANOCRYSTALLIZED 48MG TABLET PO SCH (22:24)
[2022-09-04] MEDS: ATORVASTATIN CALCIUM 10MG TABLET PO SCH (22:24)
[2022-09-04] MEDS: FAMOTIDINE 20MG TABLET NG SCH (22:25)
[2022-09-05] VITALS (13 sets, daily range): BP systolic 102–156; BP diastolic 36–81
[2022-09-05] MEDS: INSULIN LISPRO 100 UNITS/ML SUBCUT SCH ×4 (00:03→17:42)
[2022-09-05 06:24] LABS: HEMATOCRIT. 24.5 % (42.0-52.0); MEAN CORPUSCULAR HEMOGLOBIN 28.3 pg (28.0-32.0); MEAN CORPUSCULAR VOLUME 87.3 fL (80.0-94.0); MEAN PLATELET VOLUME 9.9 fl (7.4-10.4); PLATELET 211 x1000/uL (130-400); RED BLOOD CELL COUNT 2.81 mill/uL (4.7-6.1)
[2022-09-05] MEDS: BLOOD SUGAR DIAGNOSTIC STRIP TEST SCH ×3 (06:42→17:42)
[2022-09-05] MEDS: SEVELAMER CARBONATE 800 MG TABLET PO SCH ×3 (08:00→17:57)
[2022-09-05] MEDS: MIDODRINE HCL 5MG TABLET PO SCH ×3 (08:00→17:57)
[2022-09-05] MEDS: LEVETIRACETAM 250MG TABLET PO SCH ×2 (09:00→21:28)
[2022-09-05] MEDS ORDERED: POTASSIUM CHLORIDE INJ 40 MEQ in DEXT 5% WATER 250 ML IV ONE (11:00)
[2022-09-05] MEDS: FLUDROCORTISONE ACETATE 0.1MG TABLET PO SCH ×2 (12:31→21:14)
[2022-09-05] MEDS: FOLIC ACID/VITAMIN B COMP W-C TABLET PO SCH (12:32)
[2022-09-05] MEDS: KCL 20MEQ/100ML X 2 FOR TOTAL KCL 40MEQ/200ML IV SCH ×2 (12:32→15:42)
[2022-09-05] MEDS: CINACALCET HCL 60MG TABLET PO SCH (12:32)
[2022-09-05] MEDS: LEVOTHYROXINE SODIUM 50MCG TABLET PO SCH (12:42)
[2022-09-05] MEDS: CEFAZOLIN 1000MG PREMIX 50 ML IV SCH (14:44)
[2022-09-05 15:47] LABS: PLATELET ESTIMATE NORMAL
[2022-09-05] MEDS: DEXT 5%/0.45% NACL 1000ML 1,000 ML IV SCH (17:56)
[2022-09-05] MEDS: METOCLOPRAMIDE HCL 10MG/2ML VIAL IV SCH (17:57)
[2022-09-05] MEDS: ACETAMINOPHEN 325MG TABLET PO PRN (21:14)
[2022-09-05] MEDS: ATORVASTATIN CALCIUM 10MG TABLET PO SCH (21:14)
[2022-09-05] MEDS: FAMOTIDINE 20MG TABLET NG SCH (21:14)
[2022-09-05] MEDS: FENOFIBRATE NANOCRYSTALLIZED 48MG TABLET PO SCH (21:28)
[2022-09-06] VITALS (12 sets, daily range): BP systolic 108–164; BP diastolic 55–117
[2022-09-06] MEDS: BLOOD SUGAR DIAGNOSTIC STRIP TEST SCH ×4 (00:34→17:46)
[2022-09-06] MEDS: METOCLOPRAMIDE HCL 10MG/2ML VIAL IV SCH ×4 (00:34→17:40)
[2022-09-06] MEDS: INSULIN LISPRO 100 UNITS/ML SUBCUT SCH ×4 (00:36→17:45)
[2022-09-06 07:07] LABS: HEMATOCRIT. 25.4 % (42.0-52.0); HEMOGLOBIN. 8.4 g/dL (14.0-18.0); MEAN CORPUSCULAR VOLUME 87.6 fL (80.0-94.0); MEAN PLATELET VOLUME 9.9 fl (7.4-10.4); PLATELET 227 x1000/uL (130-400); RED CELL DISTRIBUTION WIDTH 17.3 % (11.6-14.6)
[2022-09-06] MEDS: CINACALCET HCL 60MG TABLET PO SCH (08:00)
[2022-09-06] MEDS: FLUDROCORTISONE ACETATE 0.1MG TABLET PO SCH ×2 (09:48→22:16)
[2022-09-06] MEDS: FOLIC ACID/VITAMIN B COMP W-C TABLET PO SCH (09:48)
[2022-09-06] MEDS: MIDODRINE HCL 5MG TABLET PO SCH ×3 (09:49→17:40)
[2022-09-06] MEDS: SEVELAMER CARBONATE 800 MG TABLET PO SCH ×3 (09:49→17:40)
[2022-09-06] MEDS: LEVETIRACETAM 250MG TABLET PO SCH ×2 (09:56→22:16)
[2022-09-06] MEDS ORDERED: POTASSIUM CHLORIDE 20MEQ TABLET SR PO NR (10:00)
[2022-09-06] MEDS: LEVOTHYROXINE SODIUM 50MCG TABLET PO SCH (13:15)
[2022-09-06 13:26] LABS: PLATELET ESTIMATE NORMAL
[2022-09-06] MEDS: CEFAZOLIN 1000MG PREMIX 50 ML IV SCH (14:00)
[2022-09-06] MEDS: FENOFIBRATE NANOCRYSTALLIZED 48MG TABLET PO SCH (22:16)
[2022-09-06] MEDS: FAMOTIDINE 20MG TABLET NG SCH (22:17)
[2022-09-06] MEDS: ATORVASTATIN CALCIUM 10MG TABLET PO SCH (22:17)
[2022-09-07] VITALS (15 sets, daily range): BP systolic 85–144; BP diastolic 33–80
[2022-09-07] MEDS: BLOOD SUGAR DIAGNOSTIC STRIP TEST SCH ×4 (00:31→18:06)
[2022-09-07] MEDS: INSULIN LISPRO 100 UNITS/ML SUBCUT SCH ×4 (00:35→18:00)
[2022-09-07] MEDS: METOCLOPRAMIDE HCL 10MG/2ML VIAL IV SCH ×4 (05:28→18:13)
[2022-09-07] MEDS: SEVELAMER CARBONATE 800 MG TABLET PO SCH ×3 (08:00→18:13)
[2022-09-07 08:09] LABS: HEMATOCRIT. 27.3 % (42.0-52.0); HEMOGLOBIN. 8.8 g/dL (14.0-18.0); MEAN CORPUSCULAR HEMOGLOBIN 28.3 pg (28.0-32.0); MEAN CORPUSCULAR VOLUME 87.5 fL (80.0-94.0); MEAN PLATELET VOLUME 9.6 fl (7.4-10.4); PLATELET 228 x1000/uL (130-400); RED BLOOD CELL COUNT 3.13 mill/uL (4.7-6.1); RED CELL DISTRIBUTION WIDTH 17.4 % (11.6-14.6)
[2022-09-07 10:06] LABS: PLATELET ESTIMATE NORMAL
[2022-09-07] MEDS: FLUDROCORTISONE ACETATE 0.1MG TABLET PO SCH ×2 (12:07→20:40)
[2022-09-07] MEDS: CINACALCET HCL 60MG TABLET PO SCH (12:07)
[2022-09-07] MEDS: MIDODRINE HCL 5MG TABLET PO SCH ×3 (12:07→18:13)
[2022-09-07] MEDS: LEVOTHYROXINE SODIUM 50MCG TABLET PO SCH (12:07)
[2022-09-07] MEDS: FOLIC ACID/VITAMIN B COMP W-C TABLET PO SCH (12:07)
[2022-09-07] MEDS: LEVETIRACETAM 250MG TABLET PO SCH ×2 (12:07→20:40)
[2022-09-07] MEDS: CEFAZOLIN 1000MG PREMIX 50 ML IV SCH (18:13)
[2022-09-07 19:09] LABS: BG BASE EXCESS -4.4 mmol/L (-2.0-2.0); BG CARBOXYHEMOGLOBIN 0.9 % (0.5-1.5); BG DEOXYHEMOGLOBIN 11.5 % (0.0-5.0); BG FRACTION INSPIRED OXYGEN 30; BG HCO3 ACT 18.6 mmol/L (22.0-26.0); BG METHEMOGLOBIN 0.3 % (0.0-1.5); BG OXYGEN SATURATION 88.4 % (92.0-98.5); BG OXYHEMOGLOBIN 87.3 % (94.0-97.0); BG PCO2 26.8 mmHg (35.0-45.0); BG PH 7.459 (7.350-7.450); BG PO2 52.9 mmHg (75.0-100.0); BG SAMPLE SITE LEFT BRACHIAL; BG TOTAL HEMOGLOBIN 8.7 g/dL (12.0-18.0); BG TOTAL RESPIRATORY RATE 12 b/min; BG VENT MODE VENT - AC
[2022-09-07] MEDS: ATORVASTATIN CALCIUM 10MG TABLET PO SCH (20:40)
[2022-09-07] MEDS: FAMOTIDINE 20MG TABLET NG SCH (20:40)
[2022-09-07] MEDS: FENOFIBRATE NANOCRYSTALLIZED 48MG TABLET PO SCH (20:40)
[2022-09-08] VITALS (14 sets, daily range): BP systolic 94–136; BP diastolic 42–90
[2022-09-08] MEDS: BLOOD SUGAR DIAGNOSTIC STRIP TEST SCH ×4 (00:02→17:10)
[2022-09-08] MEDS: METOCLOPRAMIDE HCL 10MG/2ML VIAL IV SCH ×4 (00:02→17:10)
[2022-09-08] MEDS: DEXT 5%/0.45% NACL 1000ML 1,000 ML IV SCH ×2 (05:21→05:22)
[2022-09-08] MEDS: INSULIN LISPRO 100 UNITS/ML SUBCUT SCH ×4 (05:36→17:16)
[2022-09-08] MEDS: MIDODRINE HCL 5MG TABLET PO SCH ×3 (08:10→17:10)
[2022-09-08] MEDS: CINACALCET HCL 60MG TABLET PO SCH (08:10)
[2022-09-08] MEDS: FLUDROCORTISONE ACETATE 0.1MG TABLET PO SCH ×2 (08:10→20:58)
[2022-09-08] MEDS: LEVETIRACETAM 250MG TABLET PO SCH ×2 (08:10→20:58)
[2022-09-08] MEDS: FOLIC ACID/VITAMIN B COMP W-C TABLET PO SCH (08:10)
[2022-09-08] MEDS: SEVELAMER CARBONATE 800 MG TABLET PO SCH ×3 (08:10→17:10)
[2022-09-08] MEDS: LEVOTHYROXINE SODIUM 50MCG TABLET PO SCH (08:10)
[2022-09-08] MEDS: ACETAMINOPHEN 325MG TABLET PO PRN (20:58)
[2022-09-08] MEDS: ATORVASTATIN CALCIUM 10MG TABLET PO SCH (20:58)
[2022-09-08] MEDS: FAMOTIDINE 20MG TABLET NG SCH (20:58)
[2022-09-08] MEDS: EPOETIN ALFA-EPBX 4,000 UNIT/ML VIAL SUBCUT SCH (20:59)
[2022-09-08 21:58] LABS: HEPATITIS B SURFACE ANTIGEN NEGATIVE
[2022-09-08] MEDS: FENOFIBRATE NANOCRYSTALLIZED 48MG TABLET PO SCH (23:59)
[2022-09-09] VITALS (27 sets, daily range): BP systolic 106–158; BP diastolic 54–91
[2022-09-09] MEDS: METOCLOPRAMIDE HCL 10MG/2ML VIAL IV SCH ×4 (05:29→17:01)
[2022-09-09] MEDS: BLOOD SUGAR DIAGNOSTIC STRIP TEST SCH ×4 (06:36→17:01)
[2022-09-09] MEDS: LEVETIRACETAM 250MG TABLET PO SCH ×2 (08:15→21:10)
[2022-09-09] MEDS: MIDODRINE HCL 5MG TABLET PO SCH ×3 (08:15→17:01)
[2022-09-09] MEDS: FLUDROCORTISONE ACETATE 0.1MG TABLET PO SCH ×2 (08:15→21:11)
[2022-09-09] MEDS: FOLIC ACID/VITAMIN B COMP W-C TABLET PO SCH (08:15)
[2022-09-09] MEDS: LEVOTHYROXINE SODIUM 50MCG TABLET PO SCH (08:15)
[2022-09-09] MEDS: CINACALCET HCL 60MG TABLET PO SCH (08:15)
[2022-09-09] MEDS: SEVELAMER CARBONATE 800 MG TABLET PO SCH ×3 (08:15→17:01)
[2022-09-09] MEDS: INSULIN LISPRO 100 UNITS/ML SUBCUT SCH ×3 (12:25→17:02)
[2022-09-09] MEDS: FAMOTIDINE 20MG TABLET NG SCH (21:09)
[2022-09-09] MEDS: ATORVASTATIN CALCIUM 10MG TABLET PO SCH (21:09)
[2022-09-09] MEDS: FENOFIBRATE NANOCRYSTALLIZED 48MG TABLET PO SCH (21:09)
[2022-09-10] VITALS (99 sets, daily range): BP systolic 42–197; BP diastolic 25–122
[2022-09-10] MEDS: METOCLOPRAMIDE HCL 10MG/2ML VIAL IV SCH ×4 (01:23→17:33)
[2022-09-10] MEDS: DEXTROSE 50% WATER 50ML SYRINGE IV PRN ×2 (01:38→05:42)
[2022-09-10] MEDS: IPRATROPIUM/ALBUTEROL 0.5-3(2.5)MG/3ML NEB HHN PRN ×2 (01:58→08:53)
[2022-09-10] MEDS ORDERED: SODIUM CHLORIDE 0.9% 500 ML IV NR (02:30)
[2022-09-10] MEDS: NOREPINEPHRINE 32 MG in DEXT 5% WATER 218 ML IV PRN (03:06)
[2022-09-10] MEDS ORDERED: SODIUM BICARBONATE 8.4% 1 MEQ/ML 50ML SYR IV NR (03:15)
[2022-09-10 03:24] LABS: BG CARBOXYHEMOGLOBIN 0.9 % (0.5-1.5); BG DEOXYHEMOGLOBIN 8.3 % (0.0-5.0); BG FRACTION INSPIRED OXYGEN 100; BG HCO3 ACT 23.5 mmol/L (22.0-26.0); BG METHEMOGLOBIN 0.3 % (0.0-1.5); BG OXYGEN SATURATION 91.6 % (92.0-98.5); BG OXYHEMOGLOBIN 90.5 % (94.0-97.0); BG PCO2 73.9 mmHg (35.0-45.0); BG PO2 84.4 mmHg (75.0-100.0); BG SAMPLE SITE LEFT RADIAL; BG TOTAL HEMOGLOBIN 8.3 g/dL (12.0-18.0); BG VENT MODE VENT - AC
[2022-09-10] MEDS: INSULIN LISPRO 100 UNITS/ML SUBCUT SCH ×4 (06:00→17:34)
[2022-09-10] MEDS: LEVOTHYROXINE SODIUM 50MCG TABLET PO SCH (06:30)
[2022-09-10] MEDS: BLOOD SUGAR DIAGNOSTIC STRIP TEST SCH ×4 (06:31→17:34)
[2022-09-10] MEDS: CINACALCET HCL 60MG TABLET PO SCH (07:47)
[2022-09-10] MEDS: SEVELAMER CARBONATE 800 MG TABLET PO SCH ×3 (07:47→17:33)
[2022-09-10] MEDS: MIDODRINE HCL 5MG TABLET PO SCH ×3 (08:29→17:00)
[2022-09-10] MEDS: FLUDROCORTISONE ACETATE 0.1MG TABLET PO SCH ×2 (08:29→21:27)
[2022-09-10] MEDS: LEVETIRACETAM 250MG TABLET PO SCH ×2 (08:29→21:27)
[2022-09-10] MEDS: FOLIC ACID/VITAMIN B COMP W-C TABLET PO SCH (08:29)
[2022-09-10] MEDS: PHENYLEPHRINE 50 MG in DEXT 5% WATER 245 ML IV PRN (08:57)
[2022-09-10 08:58] LABS: BG BASE EXCESS -0.9 mmol/L (-2.0-2.0); BG CARBOXYHEMOGLOBIN 0.6 % (0.5-1.5); BG DEOXYHEMOGLOBIN 15.6 % (0.0-5.0); BG FRACTION INSPIRED OXYGEN 100; BG HCO3 ACT 24.8 mmol/L (22.0-26.0); BG METHEMOGLOBIN 0.6 % (0.0-1.5); BG OXYGEN SATURATION 84.2 % (92.0-98.5); BG OXYHEMOGLOBIN 83.2 % (94.0-97.0); BG PCO2 45.9 mmHg (35.0-45.0); BG PO2 52.1 mmHg (75.0-100.0); BG SAMPLE SITE RIGHT RADIAL; BG TOTAL HEMOGLOBIN 7.6 g/dL (12.0-18.0); BG VENT MODE VENT - AC
[2022-09-10] MEDS ORDERED: AMIODARONE HCL 900 MG in DEXT 5% WATER 482 ML IV PRN (10:00)
[2022-09-10] MEDS ORDERED: AMIODARONE HCL 150 MG in DEXT 5% WATER 100 ML IV NR (10:00)
[2022-09-10 10:03] LABS: HEMATOCRIT. 25.3 % (42.0-52.0); HEMOGLOBIN. 8.2 g/dL (14.0-18.0); MEAN CORPUSCULAR HEMOGLOBIN 28.7 pg (28.0-32.0); MEAN CORPUSCULAR VOLUME 88.8 fL (80.0-94.0); MEAN PLATELET VOLUME 9.6 fl (7.4-10.4); PLATELET 178 x1000/uL (130-400); RED BLOOD CELL COUNT 2.85 mill/uL (4.7-6.1); RED CELL DISTRIBUTION WIDTH 17.7 % (11.6-14.6)
[2022-09-10 10:49] LABS: NUCLEATED RED BLOOD CELLS 1 /100 WBC; PLATELET ESTIMATE NORMAL
[2022-09-10] MEDS ORDERED: KCL 20MEQ/100ML PREMIX 100 ML IV NR (13:00)
[2022-09-10 13:11] LABS: BG BASE EXCESS -4.2 mmol/L (-2.0-2.0); BG CARBOXYHEMOGLOBIN 0.2 % (0.5-1.5); BG DEOXYHEMOGLOBIN 12.5 % (0.0-5.0); BG FRACTION INSPIRED OXYGEN 100; BG HCO3 ACT 21.4 mmol/L (22.0-26.0); BG METHEMOGLOBIN 0.1 % (0.0-1.5); BG OXYGEN SATURATION 87.5 % (92.0-98.5); BG OXYHEMOGLOBIN 87.2 % (94.0-97.0); BG PCO2 41.7 mmHg (35.0-45.0); BG PH 7.329 (7.350-7.450); BG PO2 56.9 mmHg (75.0-100.0); BG SAMPLE SITE RIGHT RADIAL; BG TOTAL HEMOGLOBIN 10.9 g/dL (12.0-18.0); BG VENT MODE VENT - AC
[2022-09-10] MEDS ORDERED: METHYLPREDNISOLONE SOD SUCC 40 MG/ML VIAL IV NR (13:45)
[2022-09-10] MEDS ORDERED: MAGNESIUM 2 G PREMIX 50 ML IV NR (14:30)
[2022-09-10] MEDS: IPRATROPIUM BROMIDE (0.02%) 0.5MG/2.5ML NEB HHN SCH ×2 (14:30→20:26)
[2022-09-10] MEDS: FENOFIBRATE NANOCRYSTALLIZED 48MG TABLET PO SCH (21:26)
[2022-09-10] MEDS: ATORVASTATIN CALCIUM 10MG TABLET PO SCH (21:27)
[2022-09-10] MEDS: FAMOTIDINE 20MG TABLET NG SCH (21:27)
[2022-09-11] VITALS (84 sets, daily range): BP systolic 54–149; BP diastolic 35–100
[2022-09-11] MEDS: BLOOD SUGAR DIAGNOSTIC STRIP TEST SCH ×4 (00:58→17:22)
[2022-09-11] MEDS: METOCLOPRAMIDE HCL 10MG/2ML VIAL IV SCH ×4 (00:59→17:22)
[2022-09-11] MEDS: INSULIN LISPRO 100 UNITS/ML SUBCUT SCH ×4 (01:02→17:24)
[2022-09-11] MEDS: IPRATROPIUM BROMIDE (0.02%) 0.5MG/2.5ML NEB HHN SCH ×4 (02:38→19:50)
[2022-09-11 05:23] LABS: HEMATOCRIT. 23.8 % (42.0-52.0); HEMOGLOBIN. 7.7 g/dL (14.0-18.0); MEAN CORPUSCULAR HEMOGLOBIN 28.4 pg (28.0-32.0); MEAN CORPUSCULAR VOLUME 87.5 fL (80.0-94.0); MEAN PLATELET VOLUME 9.4 fl (7.4-10.4); PLATELET 149 x1000/uL (130-400); RED BLOOD CELL COUNT 2.72 mill/uL (4.7-6.1); RED CELL DISTRIBUTION WIDTH 18.1 % (11.6-14.6)
[2022-09-11 05:38] LABS: PHOSPHORUS 2.8 mg/dL (2.5-4.9)
[2022-09-11] MEDS: LEVOTHYROXINE SODIUM 50MCG TABLET PO SCH (05:40)
[2022-09-11] MEDS: CINACALCET HCL 60MG TABLET PO SCH (05:41)
[2022-09-11] MEDS: SEVELAMER CARBONATE 800 MG TABLET PO SCH ×3 (05:41→17:22)
[2022-09-11] MEDS: MIDODRINE HCL 5MG TABLET PO SCH ×3 (08:09→17:22)
[2022-09-11] MEDS: FLUDROCORTISONE ACETATE 0.1MG TABLET PO SCH ×2 (08:09→21:20)
[2022-09-11] MEDS: FOLIC ACID/VITAMIN B COMP W-C TABLET PO SCH (08:09)
[2022-09-11] MEDS: LEVETIRACETAM 250MG TABLET PO SCH ×2 (08:09→21:20)
[2022-09-11 09:12] LABS: BG CARBOXYHEMOGLOBIN 2.7 % (0.5-1.5); BG DEOXYHEMOGLOBIN 0.2 % (0.0-5.0); BG FRACTION INSPIRED OXYGEN 100; BG HCO3 ACT 21.5 mmol/L (22.0-26.0); BG METHEMOGLOBIN 0.2 % (0.0-1.5); BG OXYGEN SATURATION 99.8 % (92.0-98.5); BG OXYHEMOGLOBIN 96.9 % (94.0-97.0); BG PCO2 26.9 mmHg (35.0-45.0); BG PH 7.521 (7.350-7.450); BG PO2 127.8 mmHg (75.0-100.0); BG SAMPLE SITE RIGHT RADIAL; BG TOTAL HEMOGLOBIN 7.3 g/dL (12.0-18.0); BG VENT MODE VENT - AC
[2022-09-11 09:44] LABS: PLATELET ESTIMATE NORMAL
[2022-09-11] MEDS ORDERED: MIDODRINE HCL 5MG TABLET PO SCH (13:00)
[2022-09-11] MEDS: EPOETIN ALFA-EPBX 4,000 UNIT/ML VIAL SUBCUT SCH (21:00)
[2022-09-11] MEDS: ATORVASTATIN CALCIUM 10MG TABLET PO SCH (21:19)
[2022-09-11] MEDS: FENOFIBRATE NANOCRYSTALLIZED 48MG TABLET PO SCH (21:19)
[2022-09-11] MEDS: FAMOTIDINE 20MG TABLET NG SCH (21:20)
[2022-09-11] MEDS ORDERED: CEFEPIME 2,000 MG in DEXT 5% WATER 100 ML IV SCH (22:15)
[2022-09-12] VITALS (126 sets, daily range): BP systolic 54–231; BP diastolic 35–152
[2022-09-12] MEDS: IPRATROPIUM BROMIDE (0.02%) 0.5MG/2.5ML NEB HHN SCH ×4 (00:25→20:32)
[2022-09-12] MEDS: METOCLOPRAMIDE HCL 10MG/2ML VIAL IV SCH ×4 (00:55→18:32)
[2022-09-12] MEDS: INSULIN LISPRO 100 UNITS/ML SUBCUT SCH ×4 (00:56→18:30)
[2022-09-12] MEDS: CINACALCET HCL 60MG TABLET PO SCH (05:29)
[2022-09-12] MEDS: SEVELAMER CARBONATE 800 MG TABLET PO SCH ×3 (05:29→17:56)
[2022-09-12] MEDS: BLOOD SUGAR DIAGNOSTIC STRIP TEST SCH ×5 (05:30→18:32)
[2022-09-12] MEDS: LEVOTHYROXINE SODIUM 50MCG TABLET PO SCH (05:33)
[2022-09-12 05:58] LABS: HEMATOCRIT. 26.5 % (42.0-52.0); HEMOGLOBIN. 8.5 g/dL (14.0-18.0); MEAN CORPUSCULAR HEMOGLOBIN 27.9 pg (28.0-32.0); MEAN CORPUSCULAR VOLUME 87.8 fL (80.0-94.0); MEAN PLATELET VOLUME 9.8 fl (7.4-10.4); PLATELET 172 x1000/uL (130-400); RED BLOOD CELL COUNT 3.02 mill/uL (4.7-6.1); RED CELL DISTRIBUTION WIDTH 18.7 % (11.6-14.6)
[2022-09-12 07:46] LABS: PLATELET ESTIMATE NORMAL
[2022-09-12 08:36] LABS: BG BASE EXCESS -3.9 mmol/L (-2.0-2.0); BG CARBOXYHEMOGLOBIN 0.2 % (0.5-1.5); BG DEOXYHEMOGLOBIN 3.8 % (0.0-5.0); BG HCO3 ACT 19.2 mmol/L (22.0-26.0); BG METHEMOGLOBIN 0.3 % (0.0-1.5); BG OXYGEN SATURATION 96.2 % (92.0-98.5); BG OXYHEMOGLOBIN 95.7 % (94.0-97.0); BG PCO2 28.5 mmHg (35.0-45.0); BG PH 7.446 (7.350-7.450); BG PO2 90.6 mmHg (75.0-100.0); BG SAMPLE SITE RIGHT RADIAL; BG TOTAL HEMOGLOBIN 10.7 g/dL (12.0-18.0); BG VENT MODE VENT - AC
[2022-09-12] MEDS: FLUDROCORTISONE ACETATE 0.1MG TABLET PO SCH ×2 (09:03→21:56)
[2022-09-12] MEDS: LEVETIRACETAM 250MG TABLET PO SCH ×2 (09:03→21:56)
[2022-09-12] MEDS: FOLIC ACID/VITAMIN B COMP W-C TABLET PO SCH (09:03)
[2022-09-12] MEDS: MIDODRINE HCL 5MG TABLET PO SCH ×3 (09:04→17:31)
[2022-09-12] MEDS ORDERED: DEXTROSE 50% WATER 50ML SYRINGE IV PRN (12:30)
[2022-09-12] MEDS: CEFEPIME 1,000 MG in DEXTROSE 5% WATER 50 ML IV SCH (14:56)
[2022-09-12] MEDS ORDERED: INSULIN LISPRO 100 UNITS/ML SUBCUT SCH (17:00)
[2022-09-12] MEDS: FAMOTIDINE 20MG TABLET NG SCH (21:56)
[2022-09-12] MEDS: FENOFIBRATE NANOCRYSTALLIZED 48MG TABLET PO SCH (21:56)
[2022-09-12] MEDS: ATORVASTATIN CALCIUM 10MG TABLET PO SCH (21:56)
[2022-09-12] MEDS: INSULIN GLARGINE 100 UNITS/ML SUBCUT SCH (21:57)
[2022-09-13] VITALS (97 sets, daily range): BP systolic 52–158; BP diastolic 21–107
[2022-09-13] MEDS: METOCLOPRAMIDE HCL 10MG/2ML VIAL IV SCH ×4 (00:56→17:43)
[2022-09-13] MEDS: BLOOD SUGAR DIAGNOSTIC STRIP TEST SCH ×4 (00:57→17:45)
[2022-09-13] MEDS: INSULIN LISPRO 100 UNITS/ML SUBCUT SCH ×4 (00:57→17:45)
[2022-09-13] MEDS: IPRATROPIUM BROMIDE (0.02%) 0.5MG/2.5ML NEB HHN SCH ×4 (02:33→20:12)
[2022-09-13 04:48] LABS: HEMATOCRIT. 28.2 % (42.0-52.0); HEMOGLOBIN. 9.1 g/dL (14.0-18.0); MEAN CORPUSCULAR HEMOGLOBIN 28.3 pg (28.0-32.0); MEAN CORPUSCULAR VOLUME 87.8 fL (80.0-94.0); MEAN PLATELET VOLUME 9.6 fl (7.4-10.4); PLATELET 159 x1000/uL (130-400); RED BLOOD CELL COUNT 3.21 mill/uL (4.7-6.1); RED CELL DISTRIBUTION WIDTH 18.3 % (11.6-14.6)
[2022-09-13] MEDS: SEVELAMER CARBONATE 800 MG TABLET PO SCH (06:48)
[2022-09-13] MEDS: LEVOTHYROXINE SODIUM 50MCG TABLET PO SCH (06:49)
[2022-09-13] MEDS: CINACALCET HCL 60MG TABLET PO SCH (07:00)
[2022-09-13 07:04] LABS: PLATELET ESTIMATE NORMAL
[2022-09-13] MEDS: FOLIC ACID/VITAMIN B COMP W-C TABLET PO SCH (09:00)
[2022-09-13] MEDS: LEVETIRACETAM 250MG TABLET PO SCH ×2 (10:45→21:04)
[2022-09-13] MEDS: MIDODRINE HCL 5MG TABLET PO SCH ×3 (10:45→17:43)
[2022-09-13] MEDS: FLUDROCORTISONE ACETATE 0.1MG TABLET PO SCH ×2 (10:45→21:04)
[2022-09-13] MEDS ORDERED: SODIUM CHLORIDE 3% FOR INH 4ML UD NEB INH SCH (13:00)
[2022-09-13 15:27] LABS: BG BASE EXCESS -4.7 mmol/L (-2.0-2.0); BG CARBOXYHEMOGLOBIN 0.5 % (0.5-1.5); BG DEOXYHEMOGLOBIN 2.3 % (0.0-5.0); BG FRACTION INSPIRED OXYGEN 100; BG HCO3 ACT 20.4 mmol/L (22.0-26.0); BG METHEMOGLOBIN 0.2 % (0.0-1.5); BG OXYGEN SATURATION 97.7 % (92.0-98.5); BG PCO2 37.3 mmHg (35.0-45.0); BG PH 7.355 (7.350-7.450); BG PO2 113.8 mmHg (75.0-100.0); BG SAMPLE SITE RIGHT RADIAL; BG TOTAL HEMOGLOBIN 10.2 g/dL (12.0-18.0); BG VENT MODE VENT - AC
[2022-09-13] MEDS: PHENYLEPHRINE 50 MG in DEXT 5% WATER 245 ML IV PRN (15:38)
[2022-09-13] MEDS: CEFEPIME 1,000 MG in DEXTROSE 5% WATER 50 ML IV SCH (15:42)
[2022-09-13 16:49] LABS: BG DEOXYHEMOGLOBIN 6.9 % (0.0-5.0); BG FRACTION INSPIRED OXYGEN 100; BG HCO3 ACT 21.2 mmol/L (22.0-26.0); BG METHEMOGLOBIN 0.3 % (0.0-1.5); BG OXYHEMOGLOBIN 91.8 % (94.0-97.0); BG PCO2 43.8 mmHg (35.0-45.0); BG PH 7.303 (7.350-7.450); BG PO2 74.5 mmHg (75.0-100.0); BG SAMPLE SITE RIGHT RADIAL; BG TOTAL HEMOGLOBIN 10.9 g/dL (12.0-18.0); BG VENT MODE VENT - AC
[2022-09-13] MEDS: ACETYLCYSTEINE 200MG/ML 20% VIAL 4ML INH SCH ×2 (18:24→23:59)
[2022-09-13] MEDS: FAMOTIDINE 20MG TABLET NG SCH (21:04)
[2022-09-13] MEDS: EPOETIN ALFA-EPBX 4,000 UNIT/ML VIAL SUBCUT SCH (21:04)
[2022-09-13] MEDS: INSULIN GLARGINE 100 UNITS/ML SUBCUT SCH (21:27)
[2022-09-13] MEDS: DEXTROSE 50% WATER 50ML SYRINGE IV PRN (21:28)
[2022-09-14] VITALS (28 sets, daily range): BP systolic 81–106; BP diastolic 49–76
[2022-09-14] MEDS: IPRATROPIUM BROMIDE (0.02%) 0.5MG/2.5ML NEB HHN SCH
[2022-09-14] MEDS: METOCLOPRAMIDE HCL 10MG/2ML VIAL IV SCH ×2 (00:01→06:13)
[2022-09-14] MEDS: DEXTROSE 50% WATER 50ML SYRINGE IV PRN ×2 (00:01→04:14)
[2022-09-14] MEDS: BLOOD SUGAR DIAGNOSTIC STRIP TEST SCH ×3 (00:02→06:07)
[2022-09-14] MEDS: PHENYLEPHRINE 50 MG in DEXT 5% WATER 245 ML IV PRN ×2 (00:42→06:07)
[2022-09-14] MEDS: NOREPINEPHRINE 32 MG in DEXT 5% WATER 218 ML IV PRN (00:43)
[2022-09-14 05:17] LABS: HEMATOCRIT. 30.8 % (42.0-52.0); HEMOGLOBIN. 9.4 g/dL (14.0-18.0); MEAN CORPUSCULAR HEMOGLOBIN 27.9 pg (28.0-32.0); MEAN CORPUSCULAR VOLUME 91.2 fL (80.0-94.0); MEAN PLATELET VOLUME 9.9 fl (7.4-10.4); PLATELET 172 x1000/uL (130-400); RED BLOOD CELL COUNT 3.38 mill/uL (4.7-6.1); RED CELL DISTRIBUTION WIDTH 19.4 % (11.6-14.6)
[2022-09-14] MEDS: INSULIN LISPRO 100 UNITS/ML SUBCUT SCH ×2 (06:00)
[2022-09-14] MEDS: LEVOTHYROXINE SODIUM 50MCG TABLET PO SCH (06:22)
[2022-09-14 06:45] LABS: NUCLEATED RED BLOOD CELLS 3 /100 WBC; PLATELET ESTIMATE NORMAL
[2022-09-14 08:28] LABS: BG BASE EXCESS -14.3 mmol/L (-2.0-2.0); BG DEOXYHEMOGLOBIN 80.9 % (0.0-5.0); BG HCO3 ACT 18.5 mmol/L (22.0-26.0); BG METHEMOGLOBIN 1.7 % (0.0-1.5); BG OXYGEN SATURATION 17.7 % (92.0-98.5); BG OXYHEMOGLOBIN 17.4 % (94.0-97.0); BG PCO2 91.2 mmHg (35.0-45.0); BG PH 6.925 (7.350-7.450); BG PO2 < 30.3 mmHg (75.0-100.0); BG SAMPLE SITE RIGHT RADIAL; BG TOTAL HEMOGLOBIN 9.8 g/dL (12.0-18.0); BG VENT MODE VENT - AC
== END 2022-09-14 08:09 | DRG 3 ==
LOC: ER 10:22 → 6WST 17:32 → EDBEDREQTM 17:33 → EDBEDREQ 17:33 → MICUSO 08-20 11:00 → 5EST 09-01 16:10 → MICUSO 09-10 05:28
PROVIDERS: ADMIT Hospitalist; ATTEND Hospitalist
PROC: 5A1D70Z Performance of Urinary Filtration, Intermittent, Less than 6 Hours Per Day (ICD-10-PCS; 2022-08-16)
PROC: 4A00X4Z Measurement of Central Nervous Electrical Activity, External Approach (ICD-10-PCS; 2022-08-17)
PROC: 5A1D70Z Performance of Urinary Filtration, Intermittent, Less than 6 Hours Per Day (ICD-10-PCS; 2022-08-18)
PROC: 5A1955Z Respiratory Ventilation, Greater than 96 Consecutive Hours (ICD-10-PCS; 2022-08-20)
PROC: 0BH17EZ Insertion of Endotracheal Airway into Trachea, Via Natural or Artificial Opening (ICD-10-PCS; 2022-08-20)
PROC: 02HV33Z Insertion of Infusion Device into Superior Vena Cava, Percutaneous Approach (ICD-10-PCS; 2022-08-20)
PROC: B548ZZA Ultrasonography of Superior Vena Cava, Guidance (ICD-10-PCS; 2022-08-20)
PROC: 5A12012 Performance of Cardiac Output, Single, Manual (ICD-10-PCS; 2022-08-20)
PROC: 5A1D70Z Performance of Urinary Filtration, Intermittent, Less than 6 Hours Per Day (ICD-10-PCS; 2022-08-21)
PROC: 4A00X4Z Measurement of Central Nervous Electrical Activity, External Approach (ICD-10-PCS; 2022-08-22)
PROC: 5A1D70Z Performance of Urinary Filtration, Intermittent, Less than 6 Hours Per Day (ICD-10-PCS; 2022-08-23)
PROC: 02HV33Z Insertion of Infusion Device into Superior Vena Cava, Percutaneous Approach (ICD-10-PCS; 2022-08-23)
PROC: B548ZZA Ultrasonography of Superior Vena Cava, Guidance (ICD-10-PCS; 2022-08-23)
PROC: 5A1D70Z Performance of Urinary Filtration, Intermittent, Less than 6 Hours Per Day (ICD-10-PCS; 2022-08-24)
PROC: 5A1D70Z Performance of Urinary Filtration, Intermittent, Less than 6 Hours Per Day (ICD-10-PCS; 2022-08-25)
PROC: 5A1D70Z Performance of Urinary Filtration, Intermittent, Less than 6 Hours Per Day (ICD-10-PCS; 2022-08-28)
PROC: 5A1D70Z Performance of Urinary Filtration, Intermittent, Less than 6 Hours Per Day (ICD-10-PCS; 2022-08-29)
PROC: 5A1D70Z Performance of Urinary Filtration, Intermittent, Less than 6 Hours Per Day (ICD-10-PCS; 2022-08-29)
PROC: 0B110F4 Bypass Trachea to Cutaneous with Tracheostomy Device, Open Approach (ICD-10-PCS; principal; 2022-08-30)
PROC: 0GBJ0ZZ Excision of Thyroid Gland Isthmus, Open Approach (ICD-10-PCS; 2022-08-30)
PROC: 5A1D70Z Performance of Urinary Filtration, Intermittent, Less than 6 Hours Per Day (ICD-10-PCS; 2022-09-01)
PROC: 5A1D70Z Performance of Urinary Filtration, Intermittent, Less than 6 Hours Per Day (ICD-10-PCS; 2022-09-01)
PROC: 0DH63UZ Insertion of Feeding Device into Stomach, Percutaneous Approach (ICD-10-PCS; 2022-09-03)
PROC: 5A1D70Z Performance of Urinary Filtration, Intermittent, Less than 6 Hours Per Day (ICD-10-PCS; 2022-09-05)
PROC: 5A1D70Z Performance of Urinary Filtration, Intermittent, Less than 6 Hours Per Day (ICD-10-PCS; 2022-09-07)
PROC: 5A1D70Z Performance of Urinary Filtration, Intermittent, Less than 6 Hours Per Day (ICD-10-PCS; 2022-09-09)
PROC: 5A1D70Z Performance of Urinary Filtration, Intermittent, Less than 6 Hours Per Day (ICD-10-PCS; 2022-09-09)
PROC: 5A1D70Z Performance of Urinary Filtration, Intermittent, Less than 6 Hours Per Day (ICD-10-PCS; 2022-09-12)
PROC: 5A1D70Z Performance of Urinary Filtration, Intermittent, Less than 6 Hours Per Day (ICD-10-PCS; 2022-09-12)
DX: A41.01 Sepsis due to Methicillin susceptible Staphylococcus aureus (principal); N18.6 End stage renal disease; J69.0 Pneumonitis due to inhalation of food and vomit; J96.01 Acute respiratory failure with hypoxia; G93.41 Metabolic encephalopathy; I21.A1 Myocardial infarction type 2; R65.21 Severe sepsis with septic shock; E44.1 Mild protein-calorie malnutrition; E87.1 Hypo-osmolality and hyponatremia; I13.2 Hypertensive heart and chronic kidney disease with heart failure and with stage 5 chronic kidney disease, or end stage renal disease; I50.32 Chronic diastolic (congestive) heart failure; D61.818 Other pancytopenia; E87.3 Alkalosis; Z99.11 Dependence on respirator [ventilator] status; Y99.8 Other external cause status; G40.409 Other generalized epilepsy and epileptic syndromes, not intractable, without status epilepticus; D63.8 Anemia in other chronic diseases classified elsewhere; D69.6 Thrombocytopenia, unspecified; E11.22 Type 2 diabetes mellitus with diabetic chronic kidney disease; E11.65 Type 2 diabetes mellitus with hyperglycemia; E87.5 Hyperkalemia; E03.9 Hypothyroidism, unspecified; K29.70 Gastritis, unspecified, without bleeding; R13.12 Dysphagia, oropharyngeal phase; H54.3 Unqualified visual loss, both eyes; E11.51 Type 2 diabetes mellitus with diabetic peripheral angiopathy without gangrene; E78.5 Hyperlipidemia, unspecified; E78.00 Pure hypercholesterolemia, unspecified; S00.83XA Contusion of other part of head, initial encounter; I34.0 Nonrheumatic mitral (valve) insufficiency; I07.1 Rheumatic tricuspid insufficiency; L89.150 Pressure ulcer of sacral region, unstageable; L89.226 Pressure-induced deep tissue damage of left hip; I95.9 Hypotension, unspecified; I25.10 Atherosclerotic heart disease of native coronary artery without angina pectoris; I46.9 Cardiac arrest, cause unspecified; I48.91 Unspecified atrial fibrillation; Z66 Do not resuscitate; Z99.2 Dependence on renal dialysis; Z79.02 Long term (current) use of antithrombotics/antiplatelets; Z68.20 Body mass index [BMI] 20.0-20.9, adult; Z79.899 Other long term (current) drug therapy; Z86.73 Personal history of transient ischemic attack (TIA), and cerebral infarction without residual deficits; Z79.890 Hormone replacement therapy; Z89.432 Acquired absence of left foot; Z79.4 Long term (current) use of insulin; W19.XXXA Unspecified fall, initial encounter; Y93.89 Activity, other specified; Y92.89 Other specified places as the place of occurrence of the external cause
CPT/HCPCS: 31500; 36415; 36573; 36600; 70551; 71045; 71250; 74176; 76705; 80048; 80053; 80061; 80202; 82040; 82140; 82375; 82542; 82550; 82607; 82728; 82746; 82805; 82962; 83010; 83036; 83540; 83550; 83605; 83735; 83880; 83930; 84100; 84134; 84145; 84439; 84443; 84484; 85025; 85027; 85044; 85362; 85379; 86705; 86709; 86803; 87070; 87077; 87186; 87340; 87426; 90935; 93005; 93306; 93970; 94002; 94003; 94640; 95816; 99291; A6261; C1725; C1769; J0282; J0330; J0456; J0610; J0690; J0692; J0885; J1650; J1815; J1953; J2060; J2250; J2370; J2405; J2543; J2704; J2765; J2920; J2997; J3010; J3370; J3475; J3480; J3490; J7060; J7608